=== PATIENT | female | born 1975 | race Caucasian/White ===

== ENCOUNTER 2019-06-08 07:59 | Outpatient (CLI) | payer OTHER, SELFPAY ==
--- NOTE | ~2019-06-08 | MM_ITS ---
EXAMINATION: MM [facility] HISTORY: Screening mammogram TECHNIQUE: Craniocaudal and mediolateral oblique 3-D tomosynthesis images were obtained and synthetic 2-D images were generated. CAD analysis was submitted and interpreted. COMPARISON: 07/10/2017, 04/03/2016, 12/10/2014 BREAST PARENCHYMAL COMPOSITION: There are scattered areas of fibroglandular density. FINDINGS: There is no evidence of suspicious mass, calcification, or architectural distortion to sugg est malignancy in either breast. There has been no suspicious interval change. IMPRESSION: 1. No mammographic evidence of malignancy. 2. Recommend routine screening mammography in one year. BI-RADS Category 1: Negative Reviewed, dictated and finalized at location A. RVISOR BOILER REPAIR
== END 2019-06-08 08:00 | disposition home or self-care (01) ==
LOC: ANHIMG 08:01
PROVIDERS: PCP Family Medicine; Visit Provider Family Medicine
DX: Z12.31 Encounter for screening mammogram for malignant neoplasm of breast (principal)
CPT/HCPCS: 77063; 77067

== ENCOUNTER 2021-02-27 16:29 | Outpatient (CLI) | payer OTHER, SELFPAY ==
--- NOTE | ~2021-02-27 | MM_ITS ---
EXAMINATION: MM screening [facility] w [facility] HISTORY: Screening mammogram TECHNIQUE: Craniocaudal and mediolateral oblique 3-D tomosynthesis images were obtained and synthetic 2-D images were generated. CAD analysis was submitted and interpreted. COMPARISON: 06/2019 bilateral digital screening mammogram 07/10/2017 bilateral diagnostic digital mammogram 04/03/2016, BREAST PARENCHYMAL COMPOSITION: There are scattered areas of fibroglandular density. FINDINGS: Stable mild fibroglandular asymmetry. There is no evidence of suspicious mass, calcificatio n, or architectural distortion to suggest malignancy in either breast. There has been no suspicious i nterval change. IMPRESSION: 1. No mammographic evidence of malignancy. 2. Recommend routine screening mammography in one year. BI-RADS Category 2: Benign finding(s). Reviewed, dictated and finalized at location A.
== END 2021-02-27 16:30 | disposition home or self-care (01) ==
LOC: ANHIMG 16:32
PROVIDERS: PCP Family Medicine; Visit Provider Family Medicine
DX: Z12.31 Encounter for screening mammogram for malignant neoplasm of breast (principal)
CPT/HCPCS: 77063; 77067

== ENCOUNTER 2022-05-28 13:49 | Outpatient (CLI) | payer OTHER, SELFPAY ==
--- NOTE | ~2022-05-28 | MMUS_ITS ---
EXAMINATION: MM diagnostic [facility] w [facility], US breast RT complete HISTORY: Inferior and lateral right breast pain, right nipple itching. TECHNIQUE: Bilateral full field ML, MLO and CC and right spot ML, MLO and CC 3-D tomosynthesis images were performed and synthetic 2-D images were generated. CAD analysis was submitted and interpreted. High resolution complete bilateral breast ultrasound or quadrants and subareolar area of each breast was performed. COMPARISON: 02/27/2021, 06/2019 bilateral screening mammogram examinations BREAST PARENCHYMAL COMPOSITION: There are scattered areas of fibroglandular density. FINDINGS: MAMMOGRAPHIC FINDINGS: No suspicious mass or architectural distortion, malignant calcification, skin thickening or retractio n or significant new or developing density is detected. ULTRASOUND: No suspicious mass or shadowing or other significant sonographic abnormality of either breast is dete cted. IMPRESSION: 1. No mammographic evidence of malignancy 2. Routine annual mammographic screening is recommended. BI-RADS Category 1: Negative Reviewed, dictated and finalized at location A. EMIC INTERVENTIONIST IMPRESSION: 1. No mammographic evidence of malignancy 2. Routine annual mammographic screening is recommended. BI-RADS Category 1: Negative
== END 2022-05-28 13:50 | disposition home or self-care (01) ==
PROVIDERS: PCP Family Medicine; Visit Provider Physician Assistant
DX: N64.4 Mastodynia (principal)
CPT/HCPCS: 76641; 77062; 77066; G0279

== ENCOUNTER 2022-06-26 18:20 | Emergency (ER) | payer OTHER, SELFPAY ==
--- NOTE | ~2022-06-26 | XR_ITS ---
EXAM: XR lumbar spine 2-3V DATE: 06/26/2022 19:43 HISTORY: LOWER BACK PAIN NO KNOWN INJURY . COMPARISON: None available. FINDINGS: 5 nonrib-bearing lumbar-type vertebral bodies. Pedicles intact. Normal vertebral body alig nment. Vertebral body heights preserved. Multilevel degenerative disc disease, moderate at L5-S1. Mil d lower lumbar facet arthropathy. No fracture or dislocation. IMPRESSION: No acute fracture or traumatic malalignment detected in the lumbar spine. Reviewed, dictated and finalized at location K. CIATE PROFESSOR OF GEOGRAPHY
[2022-06-26 18:49] VITALS: BP 126/76; PULSE 71; RESP 14; TEMP 36.9; O2SAT 100
--- NOTE | 2022-06-26 19:21 | ED.BACK ---
HPI - Back Pain/Injury General Chief Complaint: Back Pain/Injury Stated Complaint: back pain Time Seen by Provider: 06/26/22 19:21 Source: patient Mode of arrival: ambulatory Limitations: no limitations History of Present Illness HPI Narrative: 47-year-old female presented for complaints of pain across the lower back and left hip for 3 days. Denies known injury, but states 2 days prior she walked around [facility] and danced. Endorses left lateral calf pain /tightness. Pain worse to lower back when standing and with general movements. Described as constant and sharp. Denies radiating pain to leg/foot, numbness, tingling, weakness of the lower extremities, loss of bowel or bladder control, or saddle paresthesia. She has taken ibuprofen, muscle relaxers, and got a massage today. She has also used tennis ball and performed stretches. She endorses a history of mid back pain for which she has seen a chiropractor, but states this is different pain and more severe than she has had the past. 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 RESPIRATORY: Denies cough or dyspnea. GASTROINTESTINAL: Denies abdominal pain, nausea, vomiting, or diarrhea. SKIN: Denies rash, itching, or wounds. MUSCULOSKELETAL: reports back pain NEUROLOGIC: Denies headache, numbness, tingling, or weakness. All systems reviewed & are unremarkable except as noted in HPI and below PMFSH Past Medical History Medical History Hypothyroid Social History Social History Alcohol intake: current Comments At time of signature, I have reviewed and agree with nursing past medical, surgical, social and family history unless otherwise noted. Please see nursing chart for further information. There is no relevant family history pertinent to the presenting complaint Exam Narrative: GENERAL: appears in pain; in no acute distress. CHEST: Speaks in full sentences. No respiratory distress. HEART: Regular rate and rhythm. Normal and equal peripheral pulses. MUSC: Lower back is nontender with palpation, no paraspinal tenderness, No Vertebral point tenderness. Mild SI joint pain with palpation. BLEs with normal strength and sensation, normal range of motion edema or ecchymosis, No open wounds or rashes; alignment normal, pulse palpable and equal bilaterally, skin warm, dry, pink. Capillary refill less than 3 seconds. Gait steady. SKIN: Warm, dry, no rash. NEURO: Alert and oriented x3. Course Course Emergency Course: Patient is aware of diagnosis, understands and agrees to treatment plan. Anticipatory guidance given. Patient agrees to follow-up as directed and is aware of reasons to seek care at the emergency department. Portions of this record may have been created with voice recognition software Level of Care: Express Care Visit Vital Signs Vital signs: Vital Signs Temperature 98.4 F 06/26/22 18:49 Pulse Rate 71 06/26/22 18:49 Respiratory Rate 14 06/26/22 18:49 Blood Pressure 126/76 06/26/22 18:49 Pulse Oximetry 100 06/26/22 18:49 Oxygen Delivery Room Air 06/26/22 18:49 Temperature 98.4 F 06/26/22 18:49 Pulse Rate 71 06/26/22 18:49 Respiratory Rate 14 06/26/22 18:49 Blood Pressure 126/76 06/26/22 18:49 Pulse Oximetry 100 06/26/22 18:49 Oxygen Delivery Room Air 06/26/22 18:49 Reviewed MDM - B
== END 2022-06-26 20:05 | disposition home or self-care (01) ==
PROVIDERS: Emergency Provider Nurse Practitioner Family; PCP Family Medicine
DX: S39.012A Strain of muscle, fascia and tendon of lower back, initial encounter (principal); T14.90XA Injury, unspecified, initial encounter; E03.9 Hypothyroidism, unspecified
CPT/HCPCS: 72100; 99213; G0463

== ENCOUNTER → 2023-03-20 11:07 | Outpatient (CLI) | payer OTHER, SELFPAY ==
--- NOTE | ~2023-03-20 | XR_ITS ---
XR chest 2V DATE: 03/20/2023 11:27 INDICATION: Preprocedure examination TECHNIQUE: 2 views COMPARISON: None FINDINGS: Normal heart size. No hilar or mediastinal enlargement. No pulmonary infiltrate or consolid ation, pleural effusion or pulmonary vascular congestion or pneumothorax. Old healed right clavicular shaft fracture deformity. Mild degenerative change of the thoracic spine. IMPRESSION: No active cardiopulmonary disease Reviewed, dictated and finalized at location L. RELATIONS ADVISER
== END ==
PROVIDERS: PCP Family Medicine; Visit Provider Family Medicine
DX: Z01.818 Encounter for other preprocedural examination (principal)
CPT/HCPCS: 71046

== ENCOUNTER 2023-08-05 15:59 | Outpatient (CLI) | payer OTHER, SELFPAY ==
--- NOTE | ~2023-08-05 | MM_ITS ---
EXAMINATION: MM screening [facility] w [facility] HISTORY: Screening TECHNIQUE: Craniocaudal and mediolateral oblique 3-D tomosynthesis images were obtained and synthetic 2-D images were generated. CAD analysis was submitted and interpreted. COMPARISON: 02/27/2021 BREAST PARENCHYMAL COMPOSITION: Not dense: There are scattered areas of fibroglandular density. FINDINGS: There is no evidence of suspicious mass, calcification, or architectural distortion to sugg est malignancy in either breast. There has been no suspicious interval change. IMPRESSION: 1. No mammographic evidence of malignancy. 2. Recommend routine screening mammography in one year. BI-RADS Category 1: Negative Reviewed, dictated and finalized at location A.
== END 2023-08-05 16:00 | disposition home or self-care (01) ==
PROVIDERS: PCP Family Medicine; Visit Provider Family Medicine
DX: Z12.31 Encounter for screening mammogram for malignant neoplasm of breast (principal)
CPT/HCPCS: 77063; 77067

== ENCOUNTER 2024-04-17 09:49 | Outpatient (CLI) | payer OTHER, BC, SELFPAY ==
--- NOTE | ~2024-04-17 | MR_ITS ---
MRI of the lumbar spine Clinical History: Left sciatica Technique: Axial T2-weighted images, and sagittal T1-weighted, T2-weighted, and T2 fat-sat images wer e acquired. Findings: There is no fracture or subluxation of the lumbar spine. Vertebral bodies maintain normal h eight and alignment. No significant bone marrow signal abnormality seen. At L1-L2, there is no disc bulge or herniation. There is moderate facet hypertrophy. No spinal canal stenosis or neural foraminal narrowing. At L2-L3, there is minimal degenerative disc narrowing. No significant disc bulge or herniation. Ther e is mild to moderate facet arthropathy. No central canal stenosis or neural foraminal narrowing. At L3-L4, there is mild degenerative change. There is minimal disc bulge and mild facet arthropathy. No central canal stenosis or neural foraminal narrowing. At L4-L5, there is minimal disc bulge with mild to moderate facet arthropathy. No central canal steno sis or definite neural foraminal narrowing. At L5-S1, there is mild degenerative change. There is prominent disc protrusion at the left paracentr al region, which may impinge the descending left-sided S1-S2 level nerve root. There is moderate face t arthropathy. No marcial central canal stenosis. There is left lateral recess stenosis, though the kiran ral foramina themselves at this level are intact. Paravertebral soft tissues are unremarkable. Impression: Left paracentral disc protrusion at L5-S1, likely impinging the descending left-sided S1-S2 level ner ve root. Reviewed, dictated and finalized at [facility]. CUTTER Impression: Left paracentral disc protrusion at L5-S1, likely impinging the descending left -sided S1-S2 level nerve root.
== END 2024-04-17 09:50 | disposition home or self-care (01) ==
LOC: MICIMG 09:50
DX: M54.32 Sciatica, left side (principal); M51.26 Other intervertebral disc displacement, lumbar region
CPT/HCPCS: 72148

== ENCOUNTER 2024-10-11 15:59 | Outpatient (CLI) | payer OTHER, BC, SELFPAY ==
--- NOTE | ~2024-10-11 | XR_ITS ---
EXAMINATION: XR chest 2V Exam Date/Time: 10/11/2024 16:08 CDT HISTORY: Encounter for other specified special examinations Comparison: 03/20/2023. RESULT: Lines, tubes, and devices: None. Lungs and pleura: No focal consolidation, pleural effusion, or pneumothorax. Low volumes with crowdi ng in the lateral view. Cardiomediastinal silhouette: Stable. Other: No acute osseous or upper abdominal finding. Old right midshaft clavicle fracture healed in d eformity. IMPRESSION: No acute cardiopulmonary process. Reviewed, dictated and finalized at location K.
== END 2024-10-11 16:00 | disposition home or self-care (01) ==
PROVIDERS: PCP Nurse Practitioner Family; Visit Provider Nurse Practitioner Family
DX: Z01.89 Encounter for other specified special examinations (principal)
CPT/HCPCS: 71046

== ENCOUNTER 2024-10-16 10:55 | Outpatient (CLI) | payer OTHER, BC, SELFPAY ==
--- NOTE | ~2024-10-16 | MM_ITS ---
EXAMINATION: MM screening [facility] BI w [facility]ia HISTORY: Screening TECHNIQUE: Craniocaudal and mediolateral oblique 3-D tomosynthesis images were obtained and synthetic 2-D images were generated. CAD analysis was submitted and interpreted. COMPARISON: Comparison to multiple prior studies sequentially, with oldest reviewed study dated 03/07. BREAST PARENCHYMAL COMPOSITION: Not dense: There are scattered areas of fibroglandular density. FINDINGS: There is no evidence of suspicious mass, calcification, or architectural distortion to sugg est malignancy in either breast. There has been no suspicious interval change. IMPRESSION: 1. No mammographic evidence of malignancy. 2. Recommend routine screening mammography in one year. BI-RADS Category 1: Negative Reviewed, dictated and finalized at location A.
--- OUTSIDE RECORDS SUMMARY | 2024-10-16 11:00 | XMS_ITS | Patient Health Record ---
Author Organization [facility] Address [address] [place] [address] Care Team Providers Care Head Baker Name Role Phone Elenita Sargent Primary Care Provider ALLERGIES No Known Allergies RESULTS Component Value Reference Range Notes MRI : Lumbar without contras t (Not yet reviewed by provider) Interpretation: Performing Lab: Notes/Report: TSH+T3+Free T4+T3 Free Reviewed date:12/30/2023 09:38:24 AM Interpretation:Normal Performing Lab:[facility], [address] [place] [id number], Phone - [phone], Director - [facility] Notes/Report: TSH-ICMA 1.7 Reference Range: Non- Adult 0.450-4.500 First Trimester 0.100-4.000 Second Trimester 0.200-4.000 Third Trimester 0.300-4.500 Triiodothyronine (T-3), Serum 111 Reference Range: Adults: 55 - 170 Free T-3 3.3 Reference Range: >=20y: 2.0 - 4.4 Free T4 by Dialysis/Admissions Coordinator 0.80 This test was developed and its performance characteristics determined by [facility]. It has not been cleared or approved by the Food and Drug Administration. Reference Range: Pubertal Children and Adults: 0.8 - 1.7 Comp. Metabolic Panel (14) ( CMP)([id number]) Reviewed date:11/20/2023 08:43:03 AM Interpretation:Normal Performing Lab:[facility], [address] [place] [address], [place], [place] [id number], Phone - [phone], Director - Kelley Notes/Report: Glucose 77 70-99 mg/dL BUN 16 6-24 mg/dL Creatinine 0.64 0.57-1.00 mg/dL eGFR 108 >59 mL/min/1.73 BUN/Creatinine Ratio 25 9-23 Sodium 139 134-144 mmol/L Potassium 4.5 3.5-5.2 mmol/L Chloride 100 96-106 mmol/L Carbon Dioxide, Total 26 20-29 mmol/L Calcium 9.2 8.7-10.2 mg/dL Protein, Total 6.5 6.0-8.5 g/dL Albumin 4.1 3.9-4.9 g/dL Globulin, Total 2.4 1.5-4.5 g/dL Bilirubin, Total 0.3 0.0-1.2 mg/dL Alkaline Phosphatase 48 44-121 IU/L AST (SGOT) 18 0-40 IU/L ALT (SGPT) 31 0-32 IU/L Hemoglobin A1c (S/O) ([id number] ) Reviewed date:11/20/2023 08:43:03 AM Interpretation:Normal Performing Lab:[facility] [id number], Phone - [phone], [facility] Notes/Report: Hemoglobin A1c 5.4 4.8-5.6 % . Prediabetes: 5.7 - 6.4 Diabetes: >6.4 Glycemic control for adults with diabetes: <7.0 TSH ([id number]) Reviewed date:11/20/2023 08:43:03 AM Interpretation:Abnormal Performing Lab:[address] [id number], Phone - [phone], Director - [facility] Notes/Report: TSH 6.460 0.450-4.500 uIU/mL CBC With Differential/Platel et ([id number]) Reviewed date:11/20/2023 08:43:03 AM Interpretation:Normal Performing Lab:[address] [id number], Phone - [phone], [facility] - [facility] Notes/Report: WBC 7.4 3.4-10.8 x10E3/uL RBC 4.17 3.77-5.28 x10E6/uL Hemoglobin 12.6 11.1-15.9 g/dL Hematocrit 38.7 34.0-46.6 % MCV 93 79-97 fL MCH 30.2 26.6-33.0 pg MCHC 32.6 31.5-35.7 g/dL RDW 12.1 11.7-15.4 % Platelets 266 150-450 x10E3/uL Neutrophils 45 Not Estab. % Lymphs 45 Not Estab. % Monocytes 7 Not Estab. % Eos 2 Not Estab. % Basos 0 Not Estab. % Immature Cells Neutrophils (Absolute) 3.4 1.4-7.0 x10E3/uL Lymphs (Absolute) 3.3 0.7-3.1 x10E3/uL Monocytes(Absolute) 0.5 0.1-0.9 x10E3/uL Eos (Absolute) 0.1 0.0-0.4 x10E3/uL Baso (Absolute) 0.0 0.0-0.2 x10E3/uL Immature Granulocytes 1 Not Estab. % Immature Grans (Abs) 0.0 0.0-0.1 x10E3/uL NRBC Hematology Comments: Lipid Panel w/ Chol/HDL Rati o ([id number]) Reviewed date:11/20/2023 08:43:03 AM Interpretation:Abnormal Performing Lab:[facility], [address] [facility], [place], [place] [id number], Phone - [phone], Director - Kelley Notes/Report: Cholesterol, Total 209 100-199 mg/dL Triglycerides 221 0-149 mg/dL HDL Cholesterol 53 >39 mg/dL VLDL Cholesterol Alexandru 38 5-40 mg/dL LDL Chol Calc ([facility]) 118 0-99 mg/dL LDL Calc Comment: T. Chol/HDL Ratio 3.9 0.0-4.4 ratio T. Chol/HDL Ratio Men Women 1/2 Avg.Risk 3.4 3.3 Avg.Risk 5.0 4.4 2X Avg.Risk 9.6 7.1 3X Avg.Risk 23.4 11.0 Colonoscopy Reviewed date:03/03/2024 03:41:26 PM Interpretation:See attachment for report Performing Lab: Notes/Report: See attachment for report REASON FOR REFERRAL Reason L sciatica Diagnosis 1 Sciatica, left side (M54.32) Referral Organization [facility] Referring Provider First Name Elenita Referring Provider Last Name Arie Referring Provider [facility] icine Referred Provider [facility] Referred Provider Specialty Physical [place] white Clinical Notes Elenita Sargent 12/2023 09:37:29 AM >Pt requests [facility] in [facility]. Referral Priority Routine Referral Appointment Date 11/14/2023 Reason left sciatica, francisco javier nued Diagnosis 1 Sciatica, left side (M54.32) Referral Organization [facility] Referring Provider First Name Elenita Referring Provider Last Name Arie Referring Provider [facility] sergne Referred Provider [facility] Referred Provider Specialty Physical [place] white Clinical Notes Jayson, Henny 2023 01:43:34 PM >See notes of prior. No further records. Patient to verify insurance coverage prior to accepting referral., Gilbert Henny 12/24/2023 01:43:46 PM >Canceling per no further reports received. Referral Priority Routine Reason Given chronic consti pation complaint recommend pt see GI for colonoscopy. She is willing to go to [facility] or wherever can see her the soonest. Diagnosis 1 Screen for colon can cer (Z12.11) Referral Organization [facility] Referring Provider First Name Elenita Referring Provider Last Name Arie Referring Provider [facility] cameron Referred Provider Specialty Gastroentero logy Clinical Notes Elenita Sargent 02/03 04:05:15 PM >As of 03/02/24 pt has not scheduled appt with GI. Will close as > 30 days inactivity and under consideration of EMR migration. Referral Priority Routine MEDICATIONS Medication SIG (Take, Route, Frequency, Duration) Notes Start Date End Date Status Magdalena 0.075 MG/24HR 1 patch to skin Transdermal Two times a Week for 30 days Active COMB WINDER Thyroid 30 MG 1 tablet on an empty stomach Orally Once a day for 90 days [facility] 08/19/2023 Active buPROPion HCl ER (XL) 150 MG 1 tablet in the morning Orally Once a day for 90 days 01/20/2024 Active SOCIAL HISTORY Tobacco Use: Social History Observation Description Date Details (start date - stop date) Former Smoker 05/05/1988 - 05/05/2021 Sex Assigned At : Social History Observation Description Sex Assigned At Unknown Tobacco Use/Smoking Question Answer Notes Are you a former user When did you start using? 05/05/1988 When did you stop using? 05/05/2021 Additional Findings: Tobacco Non-User Vape user Alcohol Questionnaire Question Answer Notes Did you have a drink contain ing alcohol in the past year? Yes How often did you have a dri nk containing alcohol in the past year? 2 to 4 times a month (2 points) How many drinks did you have on a typical day when you were drinking in the past year? 5 or 6 drinks (2 points) How often did you have 6 or more drinks on one occasion in the past year? Monthly (2 points) Points 6 Interpretation Positive PROBLEMS Problem Type ICD Code Onset Dates Problem Status W/U Status Risk SNOMED Code Notes Problem Acquired absence of cervix (Z90.710) Active confirmed 433944751559497 Problem Hypothyroidism, unspecified type (E03.9) Active confirmed 62277049 Problem Obesity (E66.9) Active confirmed VITAL SIGNS Heart Rate 66 /min 01/20/2024 Temperature 97.8 degrees Fahrenheit 01/20/2024 Respiratory Rate 12 /min 01/20/2024 Oximetry 98 % 01/20/2024 Blood pressure diastolic 73 mm Hg 01/20/2024 Weight-kg 65.86 kg 01/20/2024 Height 60.25 in 01/20/2024 Blood pressure systolic 115 mm Hg 01/20/2024 Weight 145.2 lbs 01/20/2024 BMI 28.12 01/20/2024 PROCEDURES Procedure Date Ordered Date Performed Result Body Sit e COLONOSCOPY 01/19/2024 01/16/2024 Negative Encounters Encounter Location Date Provider Diagnosis [address] [address] 11/18/2023 Elenita Sargent Encounter for genera l adult medical examination with abnormal findings Z00.01 ; Hypothyroidism, unspecified type E03.9 ; Obesity E66.9 ; Vapes nicotine containing substance Z72.0 ; Acquired absence of cervix Z90.710 ; Screening for cardiovascular condition Z13.6 ; Diabetes mellitus screening Z13.1 ; Screen for colon cancer Z12.11 and Breast screening Z12.[address] [address] 12/22/2023 Elenita Darricka [facility] [address] [place] [address] 04/20/2024 Elenita Voyda [facility] [address] [place] [address] 01/20/2024 Elenita Josefyda Menopausal symptoms N95.1 ; Sciatica, left side M54.32 and Depressed mood R45.89 [facility] [address] [place] [address] 12/22/2023 Elenita Josefyda Hypothyroidism, unspecified type E03.9 and Menopausal symptoms N95.1 [facility] [address] [place] [address] 11/10/2023 Elenita Josefyda Sciatica, left side M54.32 and Constipation, chronic K59.09 [facility] [address] [place] [address] 01/19/2024 Elenita Darricka [facility] [address] [place] [address] 11/20/2023 Elenita Voyda Hypothyroidism, unspecified type E03.9 ; Elevated cholesterol with elevated triglycerides E78.2 and Vapes nicotine containing substance Z72.0 [facility] [address] [place] [address] 12/30/2023 Elenita Voyda Hypothyroidism, unspecified type E03.9 [facility] [address] [place] [address] 10/30/2023 Elenita Darricka [facility] [address] [place] [address] 01/19/2024 Elenita Darricka [facility] [address] [place] [address] 12/04/2023 Elenita Voyda Sciatica, left side M54.32 [facility] [address] [place] [address] 03/02/2024 Elenita Josefbriseydaa [facility] [address] [place] [address] 03/02/2024 Elenitajohnie Sargent [facility] [address] [place] [address] 02/27/2024 [facility] [address] [place] [address] 02/09/2024 Elenita Sargent [facility] [address] [place] [address] 12/24/2023 Elenita Sargent [facility] [address] [place] [address] 03/16/2024 Elenita Sargent [facility] [address] [place] [address] 03/08/2024 Elenita Sargent ASSESSMENTS Encounter Date Diagnosis Assessment Notes Treatment Notes Treatment Clinical Notes Section Notes 11/10/2023 Sciatica, left side (ICD-10 - M54.32) Pt doing all conservative tx including Tylenol, stretching exercises, massage, chiropractic, inversion table w/o relief - cannot tolerate NSAIDs d/t gastric sleeve surgery. She would like MRI but primary and secondary insurances have denied for unknown reasons. Discussed tx options and recommend pt continue home conservative tx, add IM steroid injection today, start MDP tomorrow, and refer to PT. Advised she likely needs 4-8 wks PT completed before insurance will cover MRI. Pt verbalized understanding and agreement with POC. Orders placed. Pt will f/u 2 months or PRN. 11/10/2023 Constipation, chronic (ICD-10 - K59.09) Many OTC products used including laxative tablets, powders, and teas as well as Rx'd LInzess. Pt is taking OTC magnesium but it is not helping. Encouraged good hydration, daily exercise, diet rich in fiber. Advised to ensure her OTC supplement is mag citrate, if not buy some and try x1-2 weeks. Consider referral to GI for c-scope. Pt voiced understanding and agreement with POC as discussed. All questions and concerns were addressed to pt satisfaction. If no improvement 1-2 weeks pt to call with update, consider Linzess Rx. 11/18/2023 Encounter for general adult medical examination with abnormal findings (ICD-10 - Z00.01) Px exam unremarkable. Discussed basic screening labs, pt agreeable, ordered. Reviewed preventative measures - discussed breast cancer screening, pelvic/pap, PSA, LDCT, colorectal cancer screening. Vaccines - UTD tdap, flu shot Encouraged good nutrition and daily exercise. Will call with lab results once rec'd. 11/18/2023 Hypothyroidism, unspecified type (ICD-10 - E03.9) She thinks most recent labs with PCP were 03/2023. Pt is unsure what results were. She is agreeable to labs today as ordered. 11/20/2023 Elevated cholesterol with elevated triglycerides (ICD-10 - E78.2) 11/18/23 labs indicate mildly elevated TC, TG, and LDL while HDL is great at 53. Encouraged pt to reduce sat/trans fats, get daily exercise, hydrate well. Discussed ASCVD risk including: current 10-year 11/20/2023 Hypothyroidism, unspecified type (ICD-10 - E03.9) 11/18/23 lab results indicate TSH elevated at 6. Pt reports prior TSH results she has available on her phone via [employer] edvin show TSH 05/2022 at 3.5, and before that 3.1. She does c/o ssx including fatigue, constipation, and some weight gain. She is agreeable to increase COMB WINDER Thyroid dose to 30mg from 15mg, and retest x1 month. Pt declines RF at this time. 1 month F/U appt scheduled. 12/04/2023 Sciatica, left side (ICD-10 - M54.32) Pt needs additional PT sessions for insurance to cover. She reports PT seems to be significantly improving ssx. Referral order placed as I'm unable to update prior order. Pt will call for any further concern. 12/22/2023 Menopausal symptoms (ICD-10 - N95.1) SSx increase in hot flashes, vaginal dryness, and absent libido. Will increase Magdalena from 0.05 mg to 0.075 mg patch. Pt will f/u 1 month to report efficacy. 12/22/2023 Hypothyroidism, unspecified type (ICD-10 - E03.9) 11/18/23 lab results indicate TSH elevated at 6. Pt reports prior TSH results she has available on her phone via [employer] show TSH 05/2022 at 3.5, and before that 3.1. She does c/o ssx including fatigue, constipation, and some weight gain. She is agreeable to increase COMB WINDER Thyroid dose to 30mg from 15mg, and retest x1 month. RF ordered to [facility], labs drawn today. 12/30/2023 Hypothyroidism, unspecified type (ICD-10 - E03.9) Prior results on 11/18/23 indicate TSH elevated at 6, which warranted COMB WINDER Thyroid dosage adjustment from 15 to 30mg. 12/22/23 lab results indicate TSH now is WNL at 1.7. She verbalized some improvement in ssx previously reported - fatigue, constipation, and weight. Pt encouraged to continue CPM. RF #90 ordered 12/21, none needed today. F/U 3 months. 01/20/2024 Sciatica, left side (ICD-10 - M54.32) Pt has completed or is continuing to perform conservative tx for chronic sciatica including Tylenol, exercises, massage therapy, massage gun, topicals like Icy Hot, chiropractic adjustment, inversion table w/o relief - cannot tolerate NSAIDs d/t gastric sleeve surgery. Pt had XR imaging done over 1 year ago with [facility]. She reports she has participated in 10 PT sessions but is concerned to continue as ssx seem to be worse now, although initially reportedly improved, for fear of increasing issue severity. Advised her to continue conservative tx, will order lumbar MRI w/o contrast. Will call with results as rec'd. 01/20/2024 Menopausal symptoms (ICD-10 - N95.1) Pt reports much improvement overall w/Magdalena dosage increase 1 month ago. She wishes to CPM. RF ordered to her preferred pharmacy. F/U 3 months. 11/18/2023 Obesity (ICD-10 - E66.9) Encouraged daily exercise, improved nutrition, adequate hydration, and weight loss. She has had gastric surgery and lost undisclosed amount of weight. 11/20/2023 Vapes nicotine containing substance (ICD-10 - Z72.0) 01/20/2024 Depressed mood (ICD-10 - R45.89) Pt reportedly doing really well since starting buproprion 150mg XL. She requests RF, denies concerns, SI, HI, and panic. RF ordered, dispensed #90. F/U 3 months. 11/18/2023 Vapes nicotine containing substance (ICD-10 - Z72.0) Pt interested in cessation. She has Rx from PCP for bupropion - verified w/pharmacy it is 150mg XL, Rx'd/filled 03/2023 #30. Pt has med at home, will restart it. Encouraged her to consider adding nicotine patch with it for increased aid. She turns 49 in April. Discussed LDCT recommendations for lung cancer screening at 49 per guidelines. She will call for help if needed. 11/18/2023 Acquired absence of cervix (ICD-10 - Z90.710) No need for pap. 11/18/2023 Screening for cardiovascular condition (ICD-10 - Z13.6) 11/18/2023 Diabetes mellitus screening (ICD-10 - Z13.1) 11/18/2023 Screen for colon cancer (ICD-10 - Z12.11) Given chronic constipation complaint recommend pt see GI for colonoscopy. She is willing to go to [facility] or wherever can see her the soonest. 11/18/2023 Breast screening (ICD-10 - Z12.39) Pt reportedly had mammo this year per Dr. Bella Villasenor. Pt reports results as WNL, repeat 1 year. Frank notes mammo completed 05/28/22, WNL, 2023 result not found. Will seek records for her chart. 11/18/2023 Other PLAN OF TREATMENT Next Appt Details Provider Name:Elenita Sargent , 11/16/2024 08:30:00 AM, [address] [place], [address], Insurance Providers Payer Name Payer Address Payer Phone Subscriber Number Group Number Insured Name Patient Relationship to Insured Coverage Start Date Coverage End Date [id number] [employer] [address] [address] [place] [address] [id number] Harvey Flores Spouse - patient is the spouse of the insured MEDICATIONS ADMINISTERED Medication Instructions Date of Administration Dosage Notes Kenalog-40 11/10/2023 40 mg MEDICAL (GENERAL) HISTORY Medical History History ICD Code Hypothyroidism E03.9 Obesity E66.9 Surgical History Surgery Date(Month/Year) mini gastric sleeve (done in [place]) 2021 fat transferred to glutes (done in [place]) 1 06/2022 body tight (done in [place] 2020 liposuction (done in [place] 2019 tummy tuck (done in [place]) 2007 tubal ligation 1998 partial hysterectomy, both ovaries remai celi 2012
--- OUTSIDE RECORDS SUMMARY | 2024-10-16 11:00 | XMS_ITS | Clinical Summary ---
Author Organization [facility] Address [address] [place] [address] Care Team Providers Care Airport Ramp Attendant Name Role Phone Unavailable Primary Care Provider Unavailabl e Source Comments [facility],non-owned Affiliates and Associated Physician Practices is amultiple site organization consisting of ambulatory clinics and hospital sitesin [place], [place], [place] and [place]. This disclosure is being madepursuant to the Care Everywhere program and may not contain all information available regarding this patient. Last updated 18.[facility] Allergies No known active allergies Medications * Be aware that medications may not be up to date on this document. Alwaysverify current medications with the patient. estradiol (Vivelle-Dot) 0.075 MG/24HR patch APPLY 1 PATCH TOPICALLY TO THE SKIN 2 TIMES A WEEK Active [employer] Thyroid 15 MG tablet Take 1 (one) tablet by mouth every morning 4 Active ibuprofen (Motrin) 200 MG tablet Take by mouth every 6 hours as needed for Pain Active Active Problems No known active problems Social History Tobacco Use Types Packs/Day Years Used Date Smoking Tobacco: Never Assessed Comments Unknown Sex and Gender Information Value Date Recorded Sex Assigned at Not on file Legal Sex Female 9:29 AM CDT Gender Identity Not on file Sexual Orientation Not on file Last Filed Vital Signs Vital Sign Reading Time Taken Comments Blood Pressure - - Pulse - - Temperature - - Respiratory Rate - - Oxygen Saturation - - Inhaled Oxygen Concentration - - Weight 66.2 kg (146 lb) 06/28/2024 1:38 PM [employer] Height 152.4 cm (5') 06/28/2024 1:38 PM [employer]EM[employer] Body Mass Index 28.51 06/28/2024 1:38 PM [employer]ING [employer]EMAN Plan of Treatment Health Maintenance Due Date Last Done Comments ALFREDO (AGES 45-75) - COL ON CA SCREENING 1974 COLON MONITORING 1974 COLONOSCOPY - COLON CA SCREENING 1974 CT COLONOGRAPHY - COLON CA SCREENING 1974 Colorectal Cancer Screening 1974 FIT - COLON CA SCREENING 1974 FLEX SIG - COLON CA SCREENING 1974 LIPID TESTING 1974 MAMMOGRAM 1974 PAP SMEAR 1974 HIV SCREENING 1989 HEPATITIS C SCREENING 04/17/1992 DTAP/TDAP/TD VACCINES (1 - Tdap) 1993 HEPATITIS B VACCINE (1 of 3 - + 3-dose series) 1993 COVID-19 VACCINE (1 - 2023-2 5 season) 2024 PNEUMOCOCCAL VACCINE 50+ (1 of 1 - PCV) 2024 ZOSTER VACCINE (1 of 2) 2024 DEPRESSION SCREENING 05/05/2024 SCREENING FOR DIABETES 06/28/2024 INFLUENZA VACCINE Completed 04/20/2024 HIB VACCINE Aged Out No longer eligi ble based on patient's age to complete this topic HPV VACCINE Aged Out No longer eligi ble based on patient's age to complete this topic MENINGOCOCCAL (Group B) VACC INE SHARED DECISION-MAKING Aged Out No longer eligibl e based on patient's age to complete this topic MENINGOCOCCAL GROUPS A/C/Y/W VACCINE Aged Out No longer eligible b ased on patient's age to complete this topic Insurance [facility]
--- OUTSIDE RECORDS SUMMARY | 2024-10-16 11:00 | XMS_ITS | Data Portability ---
[facility] [place] [facility] [address] [place] [address] Care Team Providers Care Outplacement Consultant Name Role Phone ELENITA SARGENT Primary Care Provider [facility] Physical Therapist [phone] Assessment No assessment recorded. Plan of Treatment Reminders Order Date Submit Date Provider Last Modified By Organization Details Last Modified Time Details Appointments InPerson; PE Routine- 60 2024 08:30A M Elenita Sargent HOT MIX OPERATOR Not available Not available Not available Lab rapid strep group A, throat 2024 025 [email or web address] [facility], [address] [place], [address], 10/05/2024 17:13:42 CBC w/ auto diff 2024 025 [facility] ([facility]), [address] [place] [address], [id number], 09/06/2024 11:36:57 CMP, serum or plasma 2024 025 [facility] ([facility]), [address] [place] [address], [id number], 09/06/2024 11:37:03 thyroid panel, serum 2024 025 [facility] ([facility]), [address] [place] [address], [id number], 09/06/2024 11:37:14 Referral None recorded. Procedures None recorded. Surgeries None recorded. Imaging electroca rdiogram 2024 025 [facility], [address] [place], [address], 09/16/2024 17:12:55 Medication Orders None recorded. Patient TargetsNo targets recorded. Patient Instructions Encounter Date Encounter Id Patient Instructions Last Modified By Organization Details Last Modified Time 08/16/2024 [id number] hypothyroidism: care instructions Not available 08/16/2024 12:21:36 10/05/2024 [id number] sore throat: car e instructions Not available 10/05/2024 17:03:23 Reason for Referral None Reported. Results Created Date Observation Date Name Description Value Unit Range Abnormal Flag Note LastModifiedBy Organization Detail LastModifiedTime 08/04/1908/05/2024 T4+TS H+T3+ T4F+T 3FREE +TPO TSH 4.170 uIU/m L 0.450- 4.500 normal Not Available [facility] ([facility]) [address] [place], [address], 08/05/2024 11:18:13 08/04/19 25 08/05/2024 T4+TS H+T3+ T4F+T 3FREE +TPO thyroxine (T4) 5.9 ug/dL 4.5-12 .0 normal Not Available [facility] ([facility]) [address] [place], [address], 08/05/2024 11:18:13 08/04/19 25 08/05/2024 T4+TS H+T3+ T4F+T 3FREE +TPO triiodothyro nine (T3) 110 NG/dL 71-180 normal Not Available [facility] ([facility]) [address] [place], [address], 08/05/2024 11:18:13 08/04/19 25 08/05/2024 T4+TS H+T3+ T4F+T 3FREE +TPO triiodothyro nine (T3), free 3.1 pg/mL 2.0-4. 4 normal Not Available [facility] ([facility]) [address] [place], [address], 08/05/2024 11:18:13 08/04/19 25 08/05/2024 T4+TS H+T3+ T4F+T 3FREE +TPO T4,free(dire ct) 0.78 NG/dL 0.82-1 .77 below low normal Not Available [facility] ([facility]) [address] [place], [address], 08/05/2024 11:18:13 08/04/19 25 08/05/2024 T4+TS H+T3+ T4F+T 3FREE +TPO thyroid peroxidase (tpo) Ab >600 IU/mL 0-34 above high normal Not Available [facility] ([facility]) [address] [place], [address], 08/05/2024 11:18:13 09/07/19 25 09/07/2024 BMP7+ EGFR glucose 86 mg/dL 70-99 normal Not Available [facility] ([facility]) [address] [place], [address], 09/08/2024 01:10:18 09/07/19 25 09/07/2024 BMP7+ EGFR BUN 14 mg/dL 6-24 normal Not Available [facility] ([facility]) [address] [place], [address], 09/08/2024 01:10:18 09/07/19 25 09/07/2024 BMP7+ EGFR creatinine 0.61 mg/dL 0.57-1 .00 normal Not Available [facility] ([facility]) [address] [place], [address], 09/08/2024 01:10:18 09/07/19 25 09/07/2024 BMP7+ EGFR eGFR 109 mL/mi n/1.7 3 >59 normal Not Available [facility] ([facility]) [address] [place], [address], 09/08/2024 01:10:18 09/07/19 25 09/07/2024 BMP7+ EGFR sodium 140 mmol/ L 134-14 4 normal Not Available [facility] ([facility]) [address] [facility], [place], [address], 09/08/2024 01:10:18 09/07/19 25 09/07/2024 BMP7+ EGFR potassium 3.8 mmol/ L 3.5-5. 2 normal Not Available [facility] ([facility]) [address] [facility], [place], [address], 09/08/2024 01:10:18 09/07/1909/07/2024 BMP7+ EGFR chloride 102 mmol/ L 96-106 normal Not Available [facility] ([facility]) [address] [facility], [place], [address], 09/08/2024 01:10:18 09/07/1909/07/2024 BMP7+ EGFR carbon dioxide, total 22 mmol/ L 20-29 normal Not Available [facility] ([facility]) [address] [place], [address], 09/08/2024 01:10:18 09/07/1909/06/2024 VIRAL HEPAT ITIS HBV, HCV interpretati on Commen t HBV Serol ogy Inter preta tion Chart ----- ----- ----- ----- ----- ----- ----- ----- ----- ----- ----- ----- ----- -- Inter preta tion HBsAg anti- HBs anti- HBc anti- HBc IgM ----- ----- ----- ----- ----- ----- ----- ----- ----- ----- ----- ----- ----- -- Kumar - Marlin te prese nt: + Marlin te absen t: - Test not indic ated: TNI ----- ----- ----- ----- ----- ----- ----- ----- ----- ----- ----- ----- ----- -- Susce ptibl e (neve r infec moody and no evide nce - - - TNI of tera alexander n) ----- ----- ----- ----- ----- ----- ----- ----- ----- ----- ----- ----- ----- -- Immun e due to natmolly al resol abhinav infec tion - + + TNI ----- ----- ----- ----- ----- ----- ----- ----- ----- ----- ----- ----- ----- -- Immun e due to nissai natio n - + - TNI ----- ----- ----- ----- ----- ----- ----- ----- ----- ----- ----- ----- ----- -- Acute Infec tion + - + + ----- ----- ----- ----- ----- ----- ----- ----- ----- ----- ----- ----- ----- -- Chron ic infec tion + - + - ----- ----- ----- ----- ----- ----- ----- ----- ----- ----- ----- ----- ----- -- Inter preta tion uncle ar* - - + +/- ----- ----- ----- ----- ----- ----- ----- ----- ----- ----- ----- ----- ----- -- *Mult iple possi bilit ies: resol abhinav infec tion (most commo n); false - posit heath anti- HBc ([facility]); low- level chron ic infec tion ; resol ving acute infec tion. Not Available [facility] ([facility]) [address] [place], [address], 09/08/2024 01:10:18 09/07/1909/07/2024 VIRAL HEPAT ITIS HBV, HCV HBsAg screen Negati ve negati ve Not Available [facility] ([facility]) [address] [place], [address], 09/08/2024 01:10:18 09/07/1909/07/2024 VIRAL HEPAT ITIS HBV, HCV hep B surface Ab, qual Non Reacti ve Non React heath: Not immun e to HBV infec tion. Equiv ocal: Unabl e to deter mine if anti- HBs is prese nt at level s consi stent with immun ity. React heath: Anti- HBs charleen ntrat ion detec moody at great er than 10 mIU/m L. Indiv idual is consi dered to be immun e to infec tion with HBV. Not Available [facility] ([facility]) [address] [facility], [place], [address], 09/08/2024 01:10:18 09/07/1909/07/2024 VIRAL HEPAT ITIS HBV, HCV hep B core Ab, tot Negati ve negati ve Not Available [facility] ([facility]) [address] [facility], [place], [address], 09/08/2024 01:10:18 09/07/1909/07/2024 VIRAL HEPAT ITIS HBV, HCV HCV Ab Non Reacti ve non reacti ve Not Available [facility] ([facility]) [address] [facility], [place], [address], 09/08/2024 01:10:18 09/07/1909/07/2024 VIRAL HEPAT ITIS HBV, HCV interpretati on: Commen t Not infec moody with HCV unles s early or acute infec tion is suspe cted (whic h may be delay ed in an immun ocomp romis ed indiv idual ), or other evide nce exist s to indic ate HCV infec tion. Not Available [facility] ([facility]) [address] [facility], [place], [address], 09/08/2024 01:10:18 09/07/19 25 09/07/2024 CBC WITH DIFFE RENTI AL/PL ATELE T WBC 5.9 x10e3 /uL 3.4-10 .8 normal Not Available [facility] ([facility]) [address] [place], [address], 09/08/2024 01:10:18 09/07/1909/07/2024 CBC WITH DIFFE RENTI AL/PL ATELE T RBC 4.14 x10e6 /uL 3.77-5 .28 normal Not Available [facility] ([facility]) [address] [place], [address], 09/08/2024 01:10:18 09/07/19 25 09/07/2024 CBC WITH DIFFE RENTI AL/PL ATELE T hemoglobin 12.7 g/dL 11.1-1 5.9 normal Not Available [facility] ([facility]) [address] [place], [address], 09/08/2024 01:10:18 09/07/19 25 09/07/2024 CBC WITH DIFFE RENTI AL/PL ATELE T hematocrit 38.6 % 34.0-4 6.6 normal Not Available [facility] ([facility]) [address] [place], [address], 09/08/2024 01:10:18 09/07/1909/07/2024 CBC WITH DIFFE RENTI AL/PL ATELE T MCV 93 fL 79-97 normal Not Available [facility] ([facility]) [address] [place], [address], 09/08/2024 01:10:18 09/07/1909/07/2024 CBC WITH DIFFE RENTI AL/PL ATELE T MCH 30.7 pg 26.6-3 3.0 normal Not Available [facility] ([facility]) [address] [place], [address], 09/08/2024 01:10:18 09/07/1909/07/2024 CBC WITH DIFFE RENTI AL/PL ATELE T MCHC 32.9 g/dL 31.5-3 5.7 normal Not Available [facility] ([facility]) [address] [place], [address], 09/08/2024 01:10:18 09/07/1909/07/2024 CBC WITH DIFFE RENTI AL/PL ATELE T RDW 12.0 % 11.7-1 5.4 Not Available [facility] ([facility]) [address] [place], [address], 09/08/2024 01:10:18 09/07/1909/07/2024 CBC WITH DIFFE RENTI AL/PL ATELE T platelets 244 x10e3 /uL 150-45 0 normal Not Available [facility] ([facility]) [address] [place], [address], 09/08/2024 01:10:18 09/07/19 25 09/07/2024 CBC WITH DIFFE RENTI AL/PL ATELE T neutrophils 55 % not estab. normal Not Available [facility] ([facility]) [address] [facility], [place], [address], 09/08/2024 01:10:18 09/07/19 25 09/07/2024 CBC WITH DIFFE RENTI AL/PL ATELE T lymphs 34 % not estab. normal Not Available [facility] ([facility]) [address] [place], [address], 09/08/2024 01:10:18 09/07/19 25 09/07/2024 CBC WITH DIFFE RENTI AL/PL ATELE T monocytes 6 % not estab. normal Not Available [facility] ([facility]) [address] [place], [address], 09/08/2024 01:10:18 09/07/1909/07/2024 CBC WITH DIFFE RENTI AL/PL ATELE T eos 4 % not estab. normal Not Available [facility] ([facility]) [address] [facility], [place], [address], 09/08/2024 01:10:18 09/07/1909/07/2024 CBC WITH DIFFE RENTI AL/PL ATELE T basos 1 % not estab. normal Not Available [facility] ([facility]) [address] [facility], [place], [address], 09/08/2024 01:10:18 09/07/19 25 09/07/2024 CBC WITH DIFFE RENTI AL/PL ATELE T immature cells HOT MIX OPERATOR Not Available [facility] ([facility]) [address] [place], [address], 09/08/2024 01:10:18 09/07/19 25 09/07/2024 CBC WITH DIFFE RENTI AL/PL ATELE T neutrophils (absolute) 3.3 x10e3 /uL 1.4-7. 0 normal Not Available [facility] ([facility]) [address] [place], [address], 09/08/2024 01:10:18 09/07/19 25 09/07/2024 CBC WITH DIFFE RENTI AL/PL ATELE T lymphs (absolute) 2.0 x10e3 /uL 0.7-3. 1 normal Not Available [facility] ([facility]) [address] [place], [address], 09/08/2024 01:10:18 09/07/19 25 09/07/2024 CBC WITH DIFFE RENTI AL/PL ATELE T monocytes(ab solute) 0.4 x10e3 /uL 0.1-0. 9 normal Not Available [facility] ([facility]) [address] [place], [address], 09/08/2024 01:10:18 09/07/19 25 09/07/2024 CBC WITH DIFFE RENTI AL/PL ATELE T eos (absolute) 0.2 x10e3 /uL 0.0-0. 4 normal Not Available [facility] ([facility]) [address] [place], [address], 09/08/2024 01:10:18 09/07/19 25 09/07/2024 CBC WITH DIFFE RENTI AL/PL ATELE T baso (absolute) 0.1 x10e3 /uL 0.0-0. 2 normal Not Available [facility] ([facility]) [address] [place], [address], 09/08/2024 01:10:18 09/07/19 25 09/07/2024 CBC WITH DIFFE RENTI AL/PL ATELE T immature granulocytes 0 % not estab. Not Available [facility] ([facility]) [address] [place], [address], 09/08/2024 01:10:18 09/07/19 25 09/07/2024 CBC WITH DIFFE RENTI AL/PL ATELE T immature grans (abs) 0.0 x10e3 /uL 0.0-0. 1 Not Available [facility] ([facility]) [address] [facility], [place], [address], 09/08/2024 01:10:18 09/07/1909/07/2024 CBC WITH DIFFE RENTI AL/PL ATELE T NRBC HOT MIX OPERATOR Not Available [facility] ([facility]) [address] [facility], [place], [address], 09/08/2024 01:10:18 09/07/1909/07/2024 CBC WITH DIFFE RENTI AL/PL ATELE T hematology comments: HOT MIX OPERATOR Not Available [facility] ([facility]) [address] [facility], [place], [address], 09/08/2024 01:10:18 09/07/1909/07/2024 HEPAT IC FUNCT ION PANEL (7) protein, total 7.0 g/dL 6.0-8. 5 normal Not Available [facility] ([facility]) [address] [facility], [place], [address], 09/08/2024 01:10:19 09/07/1909/07/2024 HEPAT IC FUNCT ION PANEL (7) albumin 4.5 g/dL 3.9-4. 9 normal Not Available [facility] ([facility]) [address] [facility], [place], [address], 09/08/2024 01:10:19 09/07/1909/07/2024 HEPAT IC FUNCT ION PANEL (7) bilirubin, total <0.2 mg/dL 0.0-1. 2 Not Available [facility] ([facility]) [address] [facility], [place], [address], 09/08/2024 01:10:09/07/1909/07/2024 HEPAT IC FUNCT ION PANEL (7) bilirubin, direct 0.09 mg/dL 0.00-0 .40 normal Not Available [facility] ([facility]) [address] [place], [address], 09/08/2024 01:10:09/07/1909/07/2024 HEPAT IC FUNCT ION PANEL (7) alkaline phosphatase 62 IU/L 44-121 normal Not Available [facility]) [address] [place], [address], 09/08/2024 01:10:09/07/1909/07/2024 HEPAT IC FUNCT ION PANEL (7) AST (SGOT) 24 IU/L 0-40 normal Not Available [facility] ([facility]) [address] [place], [address], 09/08/2024 01:10:19 09/07/1909/07/2024 HEPAT IC FUNCT ION PANEL (7) ALT (SGPT) 24 IU/L 0-32 normal Not Available [facility] ([facility]) [address] [place], [address], 09/08/2024 01:10:19 09/07/1909/07/2024 THYRO ID PANEL WITH TSH TSH 3.890 uIU/m L 0.450- 4.500 normal Not Available [facility] ([facility]) [address] [place], [address], 09/08/2024 01:10:09/07/1909/07/2024 THYRO ID PANEL WITH TSH thyroxine (T4) 5.6 ug/dL 4.5-12 .0 normal Not Available [facility] ([facility]) [address] [place], [address], 09/08/2024 01:10:19 09/07/1909/07/2024 THYRO ID PANEL WITH TSH T3 uptake 22 % 24-39 below low normal Not Available [facility] ([facility]) [address] [place], [address], 09/08/2024 01:10:19 09/07/19 25 09/07/2024 THYRO ID PANEL WITH TSH free thyroxine index 1.2 1.2-4. 9 normal Not Available [facility] ([facility]) [address] [facility], [place], [address], 09/08/2024 01:10:19 09/07/19 25 09/07/2024 PT AND PTT INR 1.0 0.9-1. 2 Refer ence inter tremayne is for non-a ntico agula moody patie nts. Sugge sted INR thera peuti c range for Vitam in K antag onist thera py: Stand ubaldo Dose (mode rate inten sity thera peuti c range ): 2.0 - 3.0 Highe r inten sity thera peuti c range 2.5 - 3.5 Not Available [facility] ([facility]) [address] [facility], [place], [address], 09/08/2024 01:10:20 09/07/19 25 09/07/2024 PT AND PTT prothrombin time 10.9 sec 9.1-12 .0 normal Not Available [facility] ([facility]) [address] [place], [address], 09/08/2024 01:10:20 09/07/19 25 09/07/2024 PT AND PTT APTT 31 sec 24-33 normal This test has not been valid ated for monit oring unfra ction ated hepar in thera py. aPTT- based thera peuti c range s for unfra ction ated hepar in thera py have not been estab emmanuel su For gener al guide lines on Hepar in monit oring , refer to the [facility]. Not Available [facility] ([facility]) [address] [place], [address], 09/08/2024 01:10:20 09/07/19 25 09/07/2024 HIV-1 /HIV- 2 QUALI TATIV E RNA HIV-1 RNA Non Reacti ve non reacti ve Not Available [facility] ([facility]) [address] [facility], [place], [address], 09/08/2024 01:10:20 09/07/19 25 09/07/2024 HIV-1 /HIV- 2 QUALI TATIV E RNA HIV-2 RNA Non Reacti ve non reacti ve Not Available [facility] ([facility]) [address] [facility], [place], [address], 09/08/2024 01:10:20 09/07/19 25 09/07/2024 HEMOG LOBIN A1C hemoglobin A1C 5.2 % 4.8-5. 6 normal Predi abete s: 5.7 - 6.4 Diabe myla: >6.4 Glyce nirmala contr ol for adult s with diabe myla: <7.0 Not Available [facility] ([facility]) [address] [facility], [place], [address], 09/08/2024 01:10:20 09/07/19 25 09/07/2024 RPR RPR Non Reacti ve non reacti ve Not Available [facility] ([facility]) [address] [facility], [place], [address], 09/08/2024 01:10:21 10/06/19 25 10/05/2024 rapid strep group A, throa t Strep negati ve Not Available [facility] [id number] [place], [address], 10/05/2024 17:03:19 09/17/19 25 09/16/2024 elect aram diogr am No observ ation record ed. [email or web address] [address] [place], [address], 09/16/2024 17:48:25 10/13/19 25 10/11/2024 XR, chest , 2 view No observ ation record ed. [facility] [address], [place], [address], 10/12/2024 09:59:32 Result Notes None recorded. Problems Name Problem SNOMED Code Status Onset Date Resolution Date Notes Provider Name and Address Organization Details Recorded Time Hypothyroid ism 11612049 Active Maribell Mateus null, [place] [facility] 20:10:22 Obesity 008656105 Active Maribell Cook null, [place] [facility] 20:10:27 Acquired absence of uterine cervix 9040762181576 09 Active Maribell Mateus null, [place] [facility] 20:10:16 Lumbar radiculopat hy 067359404 Active 2023 Elenita Hollingswortha HOT MIX OPERATOR [address], [place], [address], [place] [facility] 4 15:26:02 Menopausal symptom 30154800 Active 2024 Elenita Voyda HOT MIX OPERATOR [address], [place], [address], [place] [facility] 5 15:19:37 Mixed anxiety and depressive disorder 834837051 Active 2024 Elenita Vobriseydaa HOT MIX OPERATOR [address], [place], [address], [place] [facility] 5 17:14:21 Pain in throat 104185121 Active 2024 Elenita Voyda HOT MIX OPERATOR [address], [place], [address], [place] [facility] 5 10:12:49 Problem Notes None recorded. Procedures Surgical History Date Name Laterality Status Provider Name and Address Organization Details Recorded Time 01/20/20 24 Date of Last Mammogram completed Maribell Mateus [place] [facility] 04/18/2024 18:51:33 01/16/20 24 Date of Last Colonoscopy completed Maribell Cook [place] [facility] 04/18/2024 18:53:12 01/16/20 24 screening colonoscopy completed Maribelledgardo Ignacio [facility] 04/18/2024 18:54:39 05/05/19 20 liposuction of subcutaneous tissue completed Elenitaradha Hollingswortha HOT MIX OPERATOR [address], [place], [address], [facility] 08/17/2024 16:33:11 05/05/19 13 Partial hysterectomy completed Maribelledgardo Ignacio [facility] 04/17/2024 20:11:25 05/05/19 07 abdominoplasty completed Elenitaradha Hollingswortha HOT MIX OPERATOR [address], [place], [address], [facility] 08/17/2024 16:33:32 05/05/18 98 ligation of fallopian tube completed Not Available [facility] 02/08/2024 05:02:17 procedure completed Elenita Josefbriseydaa HOT MIX OPERATOR [address], [place], [address], [facility] 08/17/2024 16:32:49 procedure completed Elenita Party Over Herebriseydaa HOT MIX OPERATOR [address], [place], [address], [facility] 08/17/2024 16:34:14 sleeve resection of stomach completed Elenita Party Over Herea HOT MIX OPERATOR [address], [place], [address], [facility] 08/17/2024 16:34:39 Imaging Results None recorded. Procedure Notes None recorded. Medical Equipment None Reported. Allergies No known drug allergies Medications Name Sig Start Date Stop Date Status Note LastModified by Organization Details LastModified Time estradiol 0.075 mg/24 hr semiweekl y transderm al patch APPLY 1 PATCH TWICE A WEEK active Not Available Not Available No t Available estradiol 0.05 mg/24 hr semiweekl y transderm al patch APPLY 1 PATCH TOPICALL Y TO SKIN TWICE A WEEK 04/20 completed Not Available Not Available Not Available oxycodone -acetamin ophen 5 mg-325 mg tablet TAKE 1 TABLET BY MOUTH EVERY 6 HOURS NEEDED FOR SEVERE PAIN 04/20 completed Not Available Not Available Not Available cephalexi n 500 mg capsule 1 capsule twice daily , Orally 2023 active Not Available Not Available Not Avai lable bupropion HCl XL 150 mg 24 hr tablet, extended release 1 tablet in the morning Once a day , Orally 04/20 completed Patient stopped this approxim ately 3 weeks ago; states it caused increase d kerry mik for her Not Available Not Available Not Available HOT MIX OPERATOR Thyroid 30 mg tablet TAKE 1 TABLET BY MOUTH EVERY DAY IN THE MORNING FOR HYPOTHYR OIDISM active Not Available Not Available No t Available HOT MIX OPERATOR Thyroid 15 mg tablet 1 tablet on an empty stomach Once a day , Orally 04/05 completed Not Available Not Available Not Available Magdalena 0.025 mg/24 hr transderm al patch 1 patch to skin Two times a Week , Transder mal 04/05 completed Not Available Not Available Not Available Vitals Date Recorded Body height Provider Name an d Address Organization Details Last Updated DateTime 08/16/2024 153.035 cm Elenita Sargent [address], [place], [address], [place] [facility] 08/16/2024 12:15:15 Date Recorded Body height Provider Name an d Address Organization Details Last Updated DateTime 09/09/2024 153.035 cm Elenita Fundboxa [address], [place], [address], [place] [facility] 09/09/2024 11:21:55 Date Recorded Body height Body mass index (BMI) Body weight Body temperature Oxygen saturation Oxygen saturation in Arterial blood by Pulse oximetry Heart rate Respiratory rate Systolic blood pressure Diastolic blood pressure Provider Name and Address Organization Details Last Updated DateTime 5 153.04 cm 28.1 kg/m2 65824.8 9 g 97.7 [degF] 98 % 98 % 58 /min 14 /min 118 mm[Hg] 78 mm[Hg] Henny [place] [facility] 16:53:06 Date Recorded Body height Body mass index (BMI) Body weight Body temperature Oxygen saturation Oxygen saturation in Arterial blood by Pulse oximetry Heart rate Systolic blood pressure Diastolic blood pressure Provider Name and Address Organization Details Last Updated DateTime 153.04 cm 28.7 kg/m2 45825.3 9 g 97.8 [degF] 99 % 99 % 68 /min 118 mm[Hg] 66 mm[Hg] Henny [place] [facility] 16:48:09 Date Recorded Body height Provider Name an d Address Organization Details Last Updated DateTime 10/12/2024 153.04 cm Elenita Arie Mik [address] [facility] [address] [place], [address], [place] [facility] 10/12/2024 09:58:07 Social History Question Answer Notes LastModified by Organizat ion Details LastModified Time Tobacco Smoking Status Former Smoker Maribell Ignacio casie, [place] - [facility] 04/18/2024 18:50:42 What Is Your Level Of Caffeine Consumption? Moderate [email or web address] Information not available 04/18/2024 When Did You Quit Smoking? 1-5yearssince lastcigarette 2 [email or web address] Information not available 04/18/2024 Cigar Smoking No Information not available 10/05/2024 What Was The Date Of Your Most Recent Tobacco Screening? 09/16/2024 Information not available 10/05/2024 What Is Your Current Pack Years? 10packyears [email or web address] Information not available 04/18/2024 Have You Ever Been Counseled For Unhealthy Alcohol Use? No Information not available 10/05/2024 Has Tobacco Cessation Counseling Been Provided? Yes Information not available 10/05/2024 On What Date Was Tobacco Cessation Counseling Provided? 09/16/2024 Information not available 10/05/2024 Sex: Unknown Functional Status Question Answer Note LastModified by Organizat ion Details LastModified Time Do you use any illicit or recreational drugs? No Information not available 10/05/2024 Do you or have you ever used any other forms of tobacco or nicotine? Yes [email or web address] Information not available 04/18/2024 What is your level of alcohol consumption? Occasional Information not available 10/05/2024 Do you or have you ever used smokeless tobacco? Never used smokeless tobacco [email or web address] Information not available 04/18/2024 Are you currently employed? 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 Current user of electronic cigarettes Vape / e-cigarette s 5mg nicotine [id number] Information not available 04/18/2024 Mental Status None recorded. Family History Relationship Description Onset Age of this Age Resolved Age Notes LastModified by Organization Details LastModified Time Mother Alive Not available 1 06/19/2023 18:45:30 Father Alive [email or web address] Not available 1 06/19/2023 18:45:30 Brother Alive [email or web address] Not available 04/18/2024 18:45:30 Son Alive Not available 1 06/19/2023 18:45:30 Son Alive [email or web address] Not available 1 06/19/2023 18:45:30 Sister Alive Not available 1 06/19/2023 18:45:30 Sister Alive [email or web address] Not available 1 06/19/2023 18:45:30 Sister Alive [email or web address] Not available 1 06/19/2023 18:45:30 Sister Alive [email or web address] Not available 1 06/19/2023 18:45:30 Daughter Family member Daught er and her spouse deceas ed from MVA. Has custod y of her daught er's childr en, 1 boy 1 girl. Childr en are health y. [email or web address] Not available 04/18/2024 18:46:28 Medical History No medical history recorded. Gynecological History Statement/Question Response Date of Last Colonoscopy 01/16/2024 Date of Last Mammogram 01/20/2024 Obstetrics History GPAL:G 0 P 0 0 0 0 Immunizations Vaccine Type Date Status Note Provider Nam e and Address Organization Details Recorded Time Influenza, split virus, trivalent, PF 04/20/2024 completed Elenita Sargent HOT MIX OPERATOR [facility] [address], [place], [address], [place] [facility] 04/20/2024 17:34:38 Past Encounters Encounter ID Performer Location Encounter Start Date Encounter Closed Date Diagnosis/Indication Diagnosis SNOMED-CT Code Diagnosis ICD10 Code Diagnosis Note [id number] Elenita Sargent NP [facility] [address] [place] [address] 04/20/2024 14:23:57 04/21/2024 09:43:23 Lumbar radiculopathy 024697376 M54.16 04/2024 MRI lumbar spine indicate impression of left paracentra l disc protrusion L5-S1 likely impinging descending left-sided S1-2 nerve root.Pt wishes to see spinal specialist , referral placed.She will continue wall pilates as she thinks this many have contribute d to reduced severity of ssx. 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 All questions and concerns were addressed. Depressed mood 558147214 F32.A Reports mood overall is better and no longer taking bupropion. She denies concern.Pt will notify us for change in condition. Administra tion of influenza vaccine 32138532 Z23 [id number] Sarah Ng MD [facility] [place] [address] [place] [address] 05/19/2024 11:54:58 05/19/2024 12:15:15 Acute upper respiratory infection 52221224 J06.9 Her symptoms are consistent with a viral upper respirator y infection. Antibiotic s are not clinically indicated at this time. I discussed this with the patient and she agrees. She can take a home COVID test if she would like and is advised to call with results if she does. She is advised to rest, increase fluid intake, get a humidifier for her bedroom and may continue over-the-c ounter symptomati c medication as needed. She is advised to call or follow-up if symptoms worsen, change, or do not improve and resolve as expected. She voiced understand ing and agreement with the plan. Questions were answered to sonia on. 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 All questions and concerns were addressed. Menopausal symptom 95397 002 N95.1 Pt doing really well w/current Magdalena dosage.She wishes to CPM and requests 3 month RF.RF ordered to her preferred pharmacy. Mixed anxi ety and depressive disorder 132580576 F41.8 Pt previously took wellbutrin 150mg for 2 months but quit it thinking it caused agitation at times. She is thinking of restarting this med due to anxiety and mood. She still has at home and will check expiration date prior to restarting med. Pt will let us know how she would like us to help her with this. Declines counseling referral. Encouraged daily exercise, good nutrition, adequate sleep, etc. [id number] Elenita Sargent NP [facility] [place] [address] [place] [address] 08/16/2024 12:14:50 08/16/2024 12:58:12 Pre-surgery testing 809660355 Z01.89 Pt requests [facility] before face lift surgical procedure which is scheduled for 09/29/24 in [place]. She is not sure what labs are needed, she will call us back when she finds her paperwork at home. She does now she needs updated CBC, CMP, and thyroid panel. Lab orders placed to be completed 2 weeks before procedure. Hypothyroidism 13178877 E03.9 Last labs 08/03/24 thyroid panel WNL, TPO >600 noted. 12/2023 thyroid panel WNL. 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 All questions and concerns were addressed. Test resul t to patient by telephone [id number] Z71.2 [id number] Elenita Sargent NP [facility] [place] [address] [place] [address] 09/09/2024 11:20:55 09/09/2024 16:06:05 Discussion 443864997 Z71.2 Preoperati ve procedure 064108937 Z01.818 Pt has face lift surgical procedure scheduled for 09/29/24 in [place].Rev iewed all pt's requested lab testing results with her.She is aware there are no concerning findings.P t is aware she will be responsibl e for getting results of tests to her surgeon in [place] as Joselin was unable to find him in the system to CC results to when labs were ordered. Pt knows to look on her portal for results or [facility] website.Carly zuniga states she still needs EKG and scheduled this with us to be done in clinic 09/16/24. [id number] Elenita Sargent NP [address] [address] 09/16/2024 16:09:11 09/16/2024 17:12:54 Preoperative procedure [id number] Z01.818 Pt has face lift surgical procedure scheduled for 09/29/24 in [place].EKG performed - very mild bradycardi a at 55bpm, otherwise NSR. Pt has no hx cardio concerns.C XR was ordered and sent to [facility] on 09/06/24. Pt still to complete this and provide results to her surgeon.Carly zuniga has had bloodwork completed and provided this herself to surgeon as Joselin was unable to find him in the system to CC results to when labs were ordered. Pt knows to look on her portal for results or [facility] website.Pt is aware she will be responsibl e for getting results of tests [place] her scheduled CPE 11/16/24. [id number] Elenita Sargent NP [facility] [address] 10/05/2024 16:41:08 10/05/2024 17:14:04 Pain in throat 275675680 J02.9 Centor Score with very low likelihood of strep infection, however rapid strep testing done per pt request.Al l rapid testing in office was negative.S uspect viral URI.Encour aged rest, hydration, hand washing, small bland meals, and OTC tx as discussed for ssx mgnt. She has Flonase and Mucinex at home.Pt verbalized understand ing and agreement with above POC. All questions and concerns were addressed. [id number] Elenita Sargent NP [facility] [address] [place] [address] 10/12/2024 09:57:54 10/12/2024 10:22:54 Discussion about procedure 548591319 Z71.2 Pt was contacted via phone for CXR results review.Dis cussed each result in detail with patient. Pain in throat 913669946 J02.9 SSx that initially were evaluated here 10/05/24 have since improved significan tly per pt report.She was encouraged to continue with conservati ve care at home, rest, hydration, and hand washing.Pt verbalized understand ing and agreement with above POC. All questions and concerns were addressed. Health Concerns Section Related Observation LastModified by Organization Detai ls LastModified Time None Recorded Concern Status LastModified by Organization Details LastModified Time None Recorded Advance Directives Directive None Recorded Payers Insurance Date Sequence Insurance Name Policy Number Policy Meyer Covered Member ID Meyer Member ID Guarantor Name 05/14/2024 [place] [id number] - ALL PLANS - [MOVED-BILLE D] UNKNOWN Harvey Flores [id number] Shanika Flores 08/17/[address] ALL PLANS - [MOVED-BILLE D] [id number] Harvey Flores [id number] Shanika Flores 03/26/2024 1 *SELF PAY* UNKNOWN Harvey Flores [id number] Shanika Flores 04/20/2024 1 *SELF PAY* UNKNOWN Harvey Flores [id number] Shanika Flores 12/02/2023 1 *SELF PAY* UNKNOWN Harvey Flores [id number] Shanika Flores 12/15/2023 1 *SELF PAY* UNKNOWN Harvey Flores [id number] Shanika Flores 03/19/2024 1 *SELF PAY* UNKNOWN Harvey Flores [id number] Shanika Flores 05/11/2024 [place] [id number] - ALL PLANS - [MOVED-BILLE D] Shanika Flores [id number] Shanika Flores 10/07/2024 [facility] - ALL PLANS - [MOVED-BILLE D] [id number] Harvey Flores [id number] Shanika Flores 10/07/2024 [facility] 513 - ALL PLANS - [MOVED-BILLE D] [id number] Harvey Aguilerao [id number] Shanika Flores Notes Date Note Type Note Provider Name and Address Organization Details Recorded Time 08/16/2024 text/html Pt presents VIA PHONE for F/U LAB RESULTS. Pt doing well w/o concerns.She does request additional labs ordered as she Call placed at: 1102.Call ended at: 1112.This encounter was undertaken via [telephone]. I introduced myself as SHANIKA Coleman, and greeted the patient by name and then verified their location. We reviewed the appropriateness of virtual care for this visit and the limitations of telemedicine. All issues below were discussed and addressed but no physical exam was performed except as documented. If it was felt the patient should be evaluated [id number], they were directed to the clinic for care either now or at a subsequent visit as indicated below. Verbal consent for telemedicine visit obtained from the patient. Elenita Sargent [address], [place], [address], [facility] 08/16/2024 12:32:14 09/09/2024 text/html Pt presents VIA PHONE for F/U LAB RESULTS. Call placed at: [phone].Call ended at: [phone].This encounter was undertaken via [telephone]. I introduced myself as SHANIKA Coleman, and greeted the patient by name and then verified their location. We reviewed the appropriateness of virtual care for this visit and the limitations of telemedicine. All issues below were discussed and addressed but no physical exam was performed except as documented. If it was felt the patient should be evaluated [id number], they were directed to the clinic for care either now or at a subsequent visit as indicated below. Verbal consent for telemedicine visit obtained from the patient. Elenita Sargent HOT MIX OPERATOR [address], [place], [address], [facility] 09/09/2024 11:25:20 09/16/2024 text/html Pt presents for pre-op EKG.She denies all cardiopulmonary symptoms and issues. She is feeling great and has no concerns.Pt has face lift surgical procedure scheduled for 09/29/24 in [place]. Elenita Sargent HOT MIX OPERATOR [address], [place], [address], [place] [facility] 09/16/2024 16:58:07 10/05/2024 text/html Pt presents for C/O throat, chest, and nasal issues x 6 days.SSx: chest tightness, dry cough, sore throat (R>L), white spots, runny nose, SOLIS. Denies fevers, myalgias, ear pain, facial/sinus congestion, dizziness.Tx: NyQuil, DayQuil restarted vaping last week - unsure if sore throat is d/t this.better overall but some ssx still lingering Elenita Sargent HOT MIX OPERATOR [address], [place], [address], [place] - [facility] 10/05/2024 17:12:12 10/12/2024 text/html Pt presents VIA PHONE for F/U CXR RESULTS. She reports sore throat and URI ssx from OV 10/05/24 have improved. She no longer has sore throat, but did develop a significant cough that was worse at night. She reported strenuous coughing fits that have subsided in the last few nights. She denies any wheezing, difficulty breathing, painful breathing, fever, etc. Pt reports a fall around 2013 that resulted in R clavicle fracture. She is aware of deformity there. Call placed at: [phone].Call ended at: [phone].This encounter was undertaken via [telephone]. I introduced myself as SHANIKA Coleman, and greeted the patient by name and then verified their location. We reviewed the appropriateness of virtual care for this visit and the limitations of telemedicine. All issues below were discussed and addressed but no physical exam was performed except as documented. If it was felt the patient should be evaluated [id number], they were directed to the clinic for care either now or at a subsequent visit as indicated below. Verbal consent for telemedicine visit obtained from the patient. Elenita Sargent HOT MIX OPERATOR [address], [place], [address], [place] [facility] 10/12/2024 10:13:24 OBGyn Episode No OBEpisode recorded.
--- OUTSIDE RECORDS SUMMARY | 2024-10-16 11:00 | XMS_ITS ---
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 Name Role Phone Elenita Sargent Primary Care Provider REASON FOR VISIT PRTL: Referral Encounters Encounter Location Date Provider Diagnosis [facility] [address] [place] [address] 03/08/2024 Elenita Sargent PLAN OF TREATMENT Next Appt Details Provider Name:Elenita Sargent , 11/16/2024 08:30:00 AM, [address] [place], [address], Progress Notes * Bobby FLORESLaina:1975 (48 yo F)Acc No.[id number]:03/08/2024 Patient: Shanika FLORES :1975 Age:48 Y Sex:Female Address:[address] [place] [address] Subjective: * Chief Complaints: * PRTL: Referral * Medical History: * Surgical History: * Hospitalization/Major Diagno stic Procedure: * Medications: Objective: Assessment: Plan: * Treatment: * Procedure Codes: * true * Date:
--- OUTSIDE RECORDS SUMMARY | 2024-10-16 11:00 | XMS_ITS | Data Portability ---
Author Organization [place] - [facility] [employer], Main Office Address [address] [place] [address] Assessment No assessment recorded. Plan of Treatment Reminders Order Date Submit Date Provider Last Modified By Organization Details Last Modified Time Details Appointments None recorde d. Lab CBC w/ auto diff 2022 023 [id number] Not available 3 07:42:55 CMP, serum or plasma 2022 023 [email or web address] Not available 3 07:42:55 PT/PTT, plasma 2022 023 [id number] Not available 3 07:42:55 INR, plasma 2022 023 [email or web address] Not available 3 07:42:55 beta-HC G, qualita tive, serum or plasma 2022 023 [email or web address] Not available 3 07:42:55 urinaly sis complet e, reflex culture 2022 023 [email or web address] Not available 3 07:42:56 T3, free, serum or plasma 2022 023 [email or web address] Not available 3 07:42:56 T4, free, serum 2022 023 [email or web address] Not available 3 07:42:56 TSH, serum or plasma 2022 023 [id number] Not available 3 07:42:56 HIV 1+2 Ab + HIV1 p24 Ag, quantit ative immunoa ssay, serum 2022 023 [id number] Not available 3 07:42:56 Referral None recorde d. Procedures None recorde d. Surgeries None recorde d. Imaging MAMMO, screeni ng, digital , bilater al - *Please call pt to schedul e* 2022 023 [email or web address] ([facility]), [address] [place], [address], 4 16:00:53 MRI, lumbar spine, w/o contras t - *Please call pt to schedul e* 2022 023 [id number] [facility], [address] [facility], [place], [address], 4 09:20:11 electro cardiog ricky 2022 023 [email or web address] [facility] [address], [place], [address], 3 15:32:03 XR, chest, 2 view 2022 023 [facility] ([facility]), [address] [place], [address], 3 17:13:40 Medication Orders Linzess 145 mcg capsule 2022 023 [facility], [address] [facility], [place], [address], 3 09:51:51 Patient TargetsNo targets recorded. Patient InstructionsNo instructions recorded. Reason for Referral None Reported. Results Created Date Observation Date Name Description Value Unit Range Abnormal Flag Note LastModifiedBy Organization Detail LastModifiedTime 06/23/19 22 06/24/2021 T4,FR EE(DI RECT) T4,free(dire ct) 0.92 NG/dL 0.82-1 .77 Not Available [facility] ([facility]) [address] [place], [address], 06/28/2021 20:08:47 06/23/19 22 06/24/2021 HIV AB/P2 4 AG WITH REFLE X HIV Ab/P24 Ag screen non reacti ve non reacti ve HIV Negat heath HIV-1 /HIV- 2 antib odies and HIV-1 p24 antig en were NOT detec moody. There is no labor atory evide nce of HIV infec tion. Not Available [facility] ([facility]) [address] [facility], [place], [address], 06/28/2021 20:08:47 06/23/19 22 06/24/2021 HCG,B ETA SUBUN IT, QNT HCG,beta subunit,qnt, serum <1 mIU/m L Femal e (Non- pregn ant) 0 - 5 (Post menop ausal ) 0 - 8 Femal e (Preg nant) Weeks of Gesta tion 3 6 - 71 4 10 - 750 5 713 - 7138 6 158 - 26253 7 3647 -3384 63 8 45113 -3088 71 9 78928 -6892 10 10 49307 -8890 77 12 91169 -9316 12 14 70139 - 82930 15 16887 - 65756 16 0961 - 57357 17 9217 - 19563 18 0894 - [id number] Gregory ECLIA metho dolog y Not Available [facility] ([facility]) [address] [facility], [place], [address], 06/28/2021 20:08:46 06/23/19 22 06/28/2021 THYRO ID STIMU LATIN G HORMO NE TSH-icma 3.8 uu/mL Refer ence Range : Non-P regna nt Adult 0.450 -4.50 0 Pregn alecia First Trime ster 0.100 -4.00 0 Secon d Trime ster 0.200 -4.00 0 Third Trime ster 0.300 -4.50 0 Not Available [facility] [address] [facility], [place], [address], 06/28/2021 20:08:46 06/23/19 22 06/24/2021 PT AND PTT INR 1.0 0.9-1. 2 Refer ence inter tremayne is for non-a ntico agula moody patie nts. Sugge sted INR thera peuti c range for Vitam in K antag onist thera py: Stand ubaldo Dose (mode rate inten sity thera peuti c range ): 2.0 - 3.0 Highe r inten sity thera peuti c range 2.5 - 3.5 Not Available [facility] ([facility]) [address] [place], [address], 06/28/2021 20:08:46 06/23/19 22 06/24/2021 PT AND PTT prothrombin time 10.5 sec 9.1-12 .0 Not Available [facility] ([facility]) [address] [place], [address], 06/28/2021 20:08:46 06/23/19 22 06/24/2021 PT AND PTT APTT 29 sec 24-33 This test has not been valid ated for monit oring unfra ction ated hepar in thera py. aPTT- based thera peuti c range s for unfra ction ated hepar in thera py have not been estab emmanuel su For gener al guide lines on Hepar in monit oring , refer to the [facility] Direc tory of Mervin carrillo. Not Available [facility] ([facility]) [address] [place], [address], 06/28/2021 20:08:46 06/23/19 22 06/24/2021 URINA LYSIS , COMPL ETE specific gravity 1.024 1.005- 1.030 Not Available [facility] ([facility]) [address] [place], [address], 06/28/2021 20:08:45 06/23/19 22 06/24/2021 URINA LYSIS , COMPL ETE pH 6.0 5.0-7. 5 Not Available [facility] ([facility]) [address] [place], [address], 06/28/2021 20:08:45 06/23/19 22 06/24/2021 URINA LYSIS , COMPL ETE urine-color yellow yellow Not Available [facility] ([facility]) [address] [place], [address], 06/28/2021 20:08:45 06/23/19 22 06/24/2021 URINA LYSIS , COMPL ETE appearance clear clear Not Available [facility] ([facility]) [address] [place], [address], 06/28/2021 20:08:45 06/23/19 22 06/24/2021 URINA LYSIS , COMPL ETE WBC esterase negati ve negati ve Not Available [facility] ([facility]) [address] [place], [address], 06/28/2021 20:08:45 06/23/19 22 06/24/2021 URINA LYSIS , COMPL ETE protein negati ve negati ve/tra ce Not Available [facility] ([facility]) [address] [place], [address], 06/28/2021 20:08:45 06/23/19 22 06/24/2021 URINA LYSIS , COMPL ETE glucose negati ve negati ve Not Available [facility] ([facility]) [address] [place], [address], 06/28/2021 20:08:45 06/23/19 22 06/24/2021 URINA LYSIS , COMPL ETE ketones negati ve negati ve Not Available [facility] ([facility]) [address] [place], [address], 06/28/2021 20:08:45 06/23/19 22 06/24/2021 URINA LYSIS , COMPL ETE occult blood negati ve negati ve Not Available [facility] ([facility]) [address] [facility], [place], [address], 06/28/2021 20:08:45 06/23/19 22 06/24/2021 URINA LYSIS , COMPL ETE bilirubin negati ve negati ve Not Available [facility] ([facility]) [address] [facility], [place], [address], 06/28/2021 20:08:45 06/23/19 22 06/24/2021 URINA LYSIS , COMPL ETE urobilinogen ,semi-qn 0.2 mg/dL 0.2-1. 0 Not Available [facility] ([facility]) [address] [facility], [place], [address], 06/28/2021 20:08:45 06/23/19 22 06/24/2021 URINA LYSIS , COMPL ETE nitrite, urine negati ve negati ve Not Available [facility] ([facility]) [address] [facility], [place], [address], 06/28/2021 20:08:45 06/23/19 22 06/24/2021 URINA LYSIS , COMPL ETE microscopic examination commen t Micro scopi c follo ws if indic ated. Not Available [facility] ([facility]) [address] [facility], [place], [address], 06/28/2021 20:08:45 06/23/19 22 06/24/2021 URINA LYSIS , COMPL ETE microscopic examination see below: Micro scopi c was indic ated and was perfo rmed. Not Available [facility] ([facility]) [address] [place], [address], 06/28/2021 20:08:45 06/23/19 22 06/24/2021 URINA LYSIS , COMPL ETE WBC none seen /hpf 0 - 5 Not Available [facility] ([facility]) [address] [facility], [place], [address], 06/28/2021 20:08:45 06/23/19 22 06/24/2021 URINA LYSIS , COMPL ETE RBC 0-2 /hpf 0 - 2 Not Available [facility] ([facility]) [address] [facility], [place], [address], 06/28/2021 20:08:45 06/23/19 22 06/24/2021 URINA LYSIS , COMPL ETE epithelial cells (non renal) 0-10 /hpf 0 - 10 Not Available [facility] ([facility]) [address] [facility], [place], [address], 06/28/2021 20:08:45 06/23/19 22 06/24/2021 URINA LYSIS , COMPL ETE epithelial cells (renal) systems accountant Not Available [facility] ([facility]) [address] [facility], [place], [address], 06/28/2021 20:08:45 06/23/19 22 06/24/2021 URINA LYSIS , COMPL ETE casts none seen /lpf none seen Not Available [facility] ([facility]) [address] [facility], [place], [address], 06/28/2021 20:08:45 06/23/19 22 06/24/2021 URINA LYSIS , COMPL ETE cast type systems accountant Not Available [facility] ([facility]) [address] [facility], [place], [address], 06/28/2021 20:08:45 06/23/19 22 06/24/2021 URINA LYSIS , COMPL ETE crystals systems accountant Not Available [facility] ([facility]) [address] [facility], [place], [address], 06/28/2021 20:08:45 06/23/19 22 06/24/2021 URINA LYSIS , COMPL ETE crystal type systems accountant Not Available [facility] ([facility]) [address] [place], [address], 06/28/2021 20:08:45 06/23/19 22 06/24/2021 URINA LYSIS , COMPL ETE mucus threads systems accountant Not Available [facility] ([facility]) [address] [facility], [place], [address], 06/28/2021 20:08:45 06/23/19 22 06/24/2021 URINA LYSIS , COMPL ETE bacteria few none seen/f ew Not Available [facility] ([facility]) [address] [facility], [place], [address], 06/28/2021 20:08:45 06/23/19 22 06/24/2021 URINA LYSIS , COMPL ETE yeast systems accountant Not Available [facility] ([facility]) [address] [facility], [place], [address], 06/28/2021 20:08:45 06/23/19 22 06/24/2021 URINA LYSIS , COMPL ETE trichomonas systems accountant Not Available [facility] ([facility]) [address] [place], [address], 06/28/2021 20:08:45 06/23/19 22 06/24/2021 URINA LYSIS , COMPL ETE comment systems accountant Not Available [facility] ([facility]) [address] [place], [address], 06/28/2021 20:08:45 06/23/19 22 06/24/2021 COMP. METAB OLIC PANEL (14) glucose 80 mg/dL 65-99 Not Available [facility] ([facility]) [address] [place], [address], 06/28/2021 20:08:45 06/23/19 22 06/24/2021 COMP. METAB OLIC PANEL (14) BUN 16 mg/dL 6-24 Not Available [facility] ([facility]) [address] [facility], [place], [address], 06/28/2021 20:08:45 06/23/19 22 06/24/2021 COMP. METAB OLIC PANEL (14) creatinine 0.71 mg/dL 0.57-1 .00 Eff ectiv e Febru jessica 2021 [facility] will begin repor ting the 2020 CKD-E PI creat inine equat ion that estim ates kidne y funct ion witho ut a race varia ble. Not Available [facility] ([facility]) [address] [facility], [place], [address], 06/28/2021 20:08:45 06/23/19 22 06/24/2021 COMP. METAB OLIC PANEL (14) eGFR if nonafricn AM 102 mL/mi n/1.7 3 >59 Not Available [facility] ([facility]) [address] [facility], [place], [address], 06/28/2021 20:08:45 06/23/19 22 06/24/2021 COMP. METAB OLIC PANEL (14) eGFR if africn AM 117 mL/mi n/1.7 3 >59 In accor dance with recom menda tions from the NKF-A SN Task force , [facility] is in the proce ss of updat ing its eGFR calcu latio n to the 2020 CKD-E PI creat inine equat ion that estim ates kidne y funct ion witho ut a race varia ble. Not Available [facility] ([facility]) [address] [place], [address], 06/28/2021 20:08:45 06/23/19 22 06/24/2021 COMP. METAB OLIC PANEL (14) BUN/creatini ne ratio 23 9-23 Not Available [facility] ([facility]) [address] [place], [address], 06/28/2021 20:08:45 06/23/19 22 06/24/2021 COMP. METAB OLIC PANEL (14) sodium 142 mmol/ L 134-14 4 Not Available [facility] ([facility]) [address] [place], [address], 06/28/2021 20:08:45 06/23/19 22 06/24/2021 COMP. METAB OLIC PANEL (14) potassium 4.5 mmol/ L 3.5-5. 2 Not Available [facility] ([facility]) [address] [place], [address], 06/28/2021 20:08:45 06/23/19 22 06/24/2021 COMP. METAB OLIC PANEL (14) chloride 102 mmol/ L 96-106 Not Available [facility] ([facility]) [address] [facility] [place], [address], 06/28/2021 20:08:45 06/23/19 22 06/24/2021 COMP. METAB OLIC PANEL (14) carbon dioxide, total 24 mmol/ L 20-29 Not Available [facility] ([facility]) [address] [facility] [place], [address], 06/28/2021 20:08:45 06/23/19 22 06/24/2021 COMP. METAB OLIC PANEL (14) calcium 9.5 mg/dL 8.7-10 .2 Not Available [facility] ([facility]) [address] [place], [address], 06/28/2021 20:08:45 06/23/19 22 06/24/2021 COMP. METAB OLIC PANEL (14) protein, total 7.2 g/dL 6.0-8. 5 Not Available [facility] ([facility]) [address] [facility] [place], [address], 06/28/2021 20:08:45 06/23/19 22 06/24/2021 COMP. METAB OLIC PANEL (14) albumin 4.3 g/dL 3.8-4. 8 Not Available [facility] ([facility]) [address] [facility] [place], [address], 06/28/2021 20:08:45 06/23/19 22 06/24/2021 COMP. METAB OLIC PANEL (14) globulin, total 2.9 g/dL 1.5-4. 5 Not Available [facility] ([facility]) [address] [facility] [place], [address], 06/28/2021 20:08:45 06/23/19 22 06/24/2021 COMP. METAB OLIC PANEL (14) A/G ratio 1.5 1.2-2. 2 Not Available [facility] ([facility]) [address] [facility] [place], [address], 06/28/2021 20:08:45 06/23/19 22 06/24/2021 COMP. METAB OLIC PANEL (14) bilirubin, total 0.4 mg/dL 0.0-1. 2 Not Available [facility] ([facility]) [address] [facility] [place], [address], 06/28/2021 20:08:45 06/23/19 22 06/24/2021 COMP. METAB OLIC PANEL (14) alkaline phosphatase 57 IU/L 44-121 Not Available [facility] [address] [facility] [place], [address], 06/28/2021 20:08:45 06/23/19 22 06/24/2021 COMP. METAB OLIC PANEL (14) AST (SGOT) 56 IU/L 0-40 above high normal Not Available [facility] ([facility]) [address] [facility] [place], [address], 06/28/2021 20:08:45 06/23/19 22 06/24/2021 COMP. METAB OLIC PANEL (14) ALT (SGPT) 59 IU/L 0-32 above high normal Not Available [facility] ([facility]) [address] [facility], [place], [address], 06/28/2021 20:08:45 06/23/19 22 06/24/2021 CBC WITH DIFFE RENTI AL/PL ATELE T WBC 4.6 x10e3 /uL 3.4-10 .8 Not Available [facility] ([facility]) [address] [facility], [place], [address], 06/28/2021 20:08:45 06/23/19 22 06/24/2021 CBC WITH DIFFE RENTI AL/PL ATELE T RBC 4.09 x10e6 /uL 3.77-5 .28 Not Available [facility] ([facility]) [address] [place], [address], 06/28/2021 20:08:45 06/23/19 22 06/24/2021 CBC WITH DIFFE RENTI AL/PL ATELE T hemoglobin 12.5 g/dL 11.1-1 5.9 Not Available [facility] ([facility]) [address] [place], [address], 06/28/2021 20:08:45 06/23/19 22 06/24/2021 CBC WITH DIFFE RENTI AL/PL ATELE T hematocrit 37.5 % 34.0-4 6.6 Not Available [facility] ([facility]) [address] [place], [address], 06/28/2021 20:08:45 06/23/19 22 06/24/2021 CBC WITH DIFFE RENTI AL/PL ATELE T MCV 92 fL 79-97 Not Available [facility] ([facility]) [address] [place], [address], 06/28/2021 20:08:45 06/23/19 22 06/24/2021 CBC WITH DIFFE RENTI AL/PL ATELE T MCH 30.6 pg 26.6-3 3.0 Not Available [facility] ([facility]) [address] [facility], [place], [address], 06/28/2021 20:08:45 06/23/19 22 06/24/2021 CBC WITH DIFFE RENTI AL/PL ATELE T MCHC 33.3 g/dL 31.5-3 5.7 Not Available [facility] ([facility]) [address] [facility], [place], [address], 06/28/2021 20:08:45 06/23/19 22 06/24/2021 CBC WITH DIFFE RENTI AL/PL ATELE T RDW 12.3 % 11.7-1 5.4 Not Available [facility] ([facility]) [address] [facility], [place], [address], 06/28/2021 20:08:45 06/23/19 22 06/24/2021 CBC WITH DIFFE RENTI AL/PL ATELE T platelets 225 x10e3 /uL 150-45 0 Not Available [facility] ([facility]) [address] [facility], [place], [address], 06/28/2021 20:08:45 06/23/19 22 06/24/2021 CBC WITH DIFFE RENTI AL/PL ATELE T neutrophils 53 % not estab. Not Available [facility] ([facility]) [address] [place], [address], 06/28/2021 20:08:45 06/23/19 22 06/24/2021 CBC WITH DIFFE RENTI AL/PL ATELE T lymphs 36 % not estab. Not Available [facility] ([facility]) [address] [place], [address], 06/28/2021 20:08:45 06/23/19 22 06/24/2021 CBC WITH DIFFE RENTI AL/PL ATELE T monocytes 6 % not estab. Not Available [facility] ([facility]) [address] [place], [address], 06/28/2021 20:08:45 06/23/19 22 06/24/2021 CBC WITH DIFFE RENTI AL/PL ATELE T eos 4 % not estab. Not Available [facility] ([facility]) [address] [facility], [place], [address], 06/28/2021 20:08:45 06/23/19 22 06/24/2021 CBC WITH DIFFE RENTI AL/PL ATELE T basos 1 % not estab. Not Available [facility] ([facility]) [address] [facility], [place], [address], 06/28/2021 20:08:45 06/23/19 22 06/24/2021 CBC WITH DIFFE RENTI AL/PL ATELE T immature cells systems accountant Not Available [facility] ([facility]) [address] [place], [address], 06/28/2021 20:08:45 06/23/19 22 06/24/2021 CBC WITH DIFFE RENTI AL/PL ATELE T neutrophils (absolute) 2.5 x10e3 /uL 1.4-7. 0 Not Available [facility] ([facility]) [address] [place], [address], 06/28/2021 20:08:45 06/23/19 22 06/24/2021 CBC WITH DIFFE RENTI AL/PL ATELE T lymphs (absolute) 1.7 x10e3 /uL 0.7-3. 1 Not Available [facility] ([facility]) [address] [place], [address], 06/28/2021 20:08:45 06/23/19 22 06/24/2021 CBC WITH DIFFE RENTI AL/PL ATELE T monocytes(ab solute) 0.3 x10e3 /uL 0.1-0. 9 Not Available [facility] ([facility]) [address] [facility], [place], [address], 06/28/2021 20:08:45 06/23/19 22 06/24/2021 CBC WITH DIFFE RENTI AL/PL ATELE T eos (absolute) 0.2 x10e3 /uL 0.0-0. 4 Not Available [facility] ([facility]) [address] [facility], [place], [address], 06/28/2021 20:08:45 06/23/19 22 06/24/2021 CBC WITH DIFFE RENTI AL/PL ATELE T baso (absolute) 0.0 x10e3 /uL 0.0-0. 2 Not Available [facility] ([facility]) [address] [facility], [place], [address], 06/28/2021 20:08:45 06/23/19 22 06/24/2021 CBC WITH DIFFE RENTI AL/PL ATELE T immature granulocytes 0 % not estab. Not Available [facility] ([facility]) [address] [facility], [place], [address], 06/28/2021 20:08:45 06/23/19 22 06/24/2021 CBC WITH DIFFE RENTI AL/PL ATELE T immature grans (abs) 0.0 x10e3 /uL 0.0-0. 1 Not Available [facility] ([facility]) [address] [place], [address], 06/28/2021 20:08:45 06/23/19 22 06/24/2021 CBC WITH DIFFE RENTI AL/PL ATELE T NRBC systems accountant Not Available [facility] ([facility]) [address] [facility], [place], [address], 06/28/2021 20:08:45 06/23/19 22 06/24/2021 CBC WITH DIFFE RENTI AL/PL ATELE T hematology comments: systems accountant Not Available [facility] ([facility]) [address], [place], [address], 06/28/2021 20:08:45 08/28/19 22 08/24/2021 US, neck, soft tissu e No observ ation record ed. MIGRATION. [facility] [address], [place], [address], 07/03/2022 08:14:59 05/29/19 23 05/28/2022 MAMMO , diagn ostic , digit al, bilat eral No observ ation record ed. MIGRATION. [address], [place], [address], 07/03/2022 08:14:59 06/26/19 23 06/26/2022 XR, lumba r spine No observ ation record ed. MIGRATION. [address], [place], [address], 07/03/2022 08:14:59 03/18/20 elect aram diogr am No observ ation record ed. [email or web address] [facility] [address], [place], [address], 03/18/2023 10:50:53 03/20/20 23 03/20/2023 XR, chest , 2 view No observ ation record ed. [email or web address] [facility] [address], [place], [address], 03/25/2023 12:03:42 03/20/20 23 03/20/2023 XR, chest , 2 view No observ ation record ed. [email or web address] [address], [place], [address], 09/19/2023 16:00:46 Result Notes None recorded. Problems Name Problem SNOMED Code Status Onset Date Resolution Date Notes Provider Name and Address Organization Details Recorded Time Tobacco user 179019837 Active Not Available [facility] 3 08:09:41 Chronic back pain 483883820 Active Not Available [facility] 3 08:09:41 Constipati on 59129456 Active Not Available [facility] 3 08:09:41 Overweight 842764677 Active Not Available [facility] 3 08:09:41 Varicose veins of lower extremity with inflammati on Active Not Available [facility] 3 08:09:41 Shoulder joint pain 525956258 Active Not Available [facility] 3 08:09:42 Anemia 065962625 Active Not Available [facility] 3 08:09:42 Thyroid function tests abnormal 087500493 Active Not Available [facility] 3 08:09:42 Bronchitis 63497177 Active Not Available [facility] 3 08:09:42 Closed fracture of clavicle 13712997 Active Not Available [facility] 3 08:09:42 Hypothyroi dism 94826062 Active Not Available [facility] 3 08:09:42 Obesity 718800184 Active Not Available [facility] 3 08:09:42 Cough 82883144 Active Not Available [facility] 3 08:09:42 Diarrhea 58215962 Active Not Available [facility] 3 08:09:42 Dyspareuni a 63523991 Active Not Available [facility] 3 08:09:42 Neck pain 78119813 Active Not Available [facility] 3 08:09:43 Pain in limb 24702922 Active Not Available [facility] 3 08:09:43 Depressive disorder 62907547 Active 2022 Bella Villasenor MD [address], [facility] [address], [place], [address] , [facility] [employer] [facility] 3 12:22:01 Chronic idiopathic constipati on 42678579 Active 2022 Bella Villasenor MD [address], [facility] [address], [place], [address] , [facility] [employer] [facility] 3 09:45:40 Left side sciatica 3563594335820 04 Active 2022 Bella Villasenor MD [address] [address], [place], [address] , [facility] [employer] [facility] 3 09:47:50 Degenerati on of lumbar interverte bral disc 69667910 Active 2022 Bella Villasenor MD [address], [facility] [address], [place], [address] , [facility] [employer] [facility] 3 09:49:44 Problem Notes None recorded. Procedures Surgical History Date Name Laterality Status Provider Name and Address Organization Details Recorded Time 01/14/20 21 laparoscopic sleeve gastrectomy completed Not Available [facility] 07/03/2022 08:05:25 05/05/19 07 abdominoplasty completed Not Available [facility] 07/03/2022 08:05:25 procedure on upper arm completed Not Available [facility] 07/03/2022 08:05:25 Dilation and curettage completed Not Available [facility] 07/03/2022 08:05:25 Tubal Ligation completed Not Available [facility] 07/03/2022 08:05:25 Hysterectomy, Partial completed Not Available [facility] 07/03/2022 08:05:25 Imaging Results None recorded. Procedure Notes None recorded. Medical Equipment None Reported. Medications Name Sig Start Date Stop Date Status Note LastModified by Organization Details LastModified Time cyclobenza hunter 10 mg tablet TAKE 1 TABLET BY MOUTH THREE TIMES DAILY NEEDED FOR MUSCLE SPASM active Not Available Not Available No t Available metformin 500 mg tablet Take 1 tablet every day by oral route as directed for 30 days. 09/02 completed Not Available Not Available Not Available estradiol 0.075 mg/24 hr semiweekly transderma l patch APPLY 1 PATCH TOPICALL Y TO THE SKIN 2 TIMES A WEEK active Not Available Not Available No t Available azithromyc in 250 mg tablet 2 tabs po qd x 1 day then 1 tab po qd x 4 days active Not Available Not Available No t Available hydrocodon e 5 mg-acetami nophen 325 mg tablet TK 1 T PO Q 6 H PRN P active Not Available Not Available No t Available ondansetro n HCl 4 mg tablet 04/30 completed Not Available Not Available Not Available prednisone 20 mg tablet Take 2 tablets every day by oral route for 5 days. active Not Available Not Available No t Available Doc-Q-Lace 100 mg capsule TK 1 C PO BID 12/05 completed Not Available Not Available Not Available topiramate 25 mg tablet TAKE ONE TABLET BY MOUTH ONCE DAILY 04/18 completed Not Available Not Available Not Available phentermin e 37.5 mg tablet TAKE 1 TABLET BY MOUTH ONCE DAILY 08/24 completed Not Available Not Available Not Available estradiol 0.05 mg/24 hr semiweekly transderma l patch APPLY 1 PATCH TOPICALL Y TWICE A WEEK 2023 active Not Available Not Available Not Avai lable tramadol 50 mg tablet TAKE 1 TABLET BY MOUTH EVERY 4 TO 6 HOURS NEEDED 08/02 completed Not Available Not Available Not Available triamcinol one acetonide 0.1 % topical cream APPLY CREAM EXTERNAL LY TO AFFECTED AREA TWICE DAILY NEEDED 08/02 completed Not Available Not Available Not Available meloxicam 7.5 mg tablet TK 1 T PO QD WF 12/05 completed Not Available Not Available Not Available oxycodone- acetaminop hen 5 mg-325 mg tablet TAKE 1 TABLET BY MOUTH EVERY 6 HOURS NEEDED FOR SEVERE PAIN active Not Available Not Available No t Available levothyrox ine 50 mcg tablet Take 1 tablet(s ) every day by oral route. 10/24 completed Not Available Not Available Not Available hydrocodon e 7.5 mg-acetami nophen 325 mg tablet TK 1 T PO Q 4 H PRN P 12/05 completed Not Available Not Available Not Available cephalexin 500 mg capsule 04/30 completed Not Available Not Available Not Available oseltamivi r 75 mg capsule TK 1 C PO BID 01/19 completed Not Available Not Available Not Available ferrous sulfate 325 mg (65 mg iron) tablet TAKE 1 Q TID 06/28 completed takes while on menses Not Available Not Available Not Available triamcinol one acetonide 0.1 % topical ointment Apply 1 applicat ion twice a day by topical route as needed for 7 days. active Not Available Not Available No t Available hydrocodon e 5 mg-acetami nophen 500 mg tablet 06/28 completed Not Available Not Available Not Available furosemide 20 mg tablet TAKE 1 TABLET BY MOUTH IN THE MORNING NEEDED FOR EDEMA 08/02 completed Not Available Not Available Not Available polyethyle ne glycol 3350 17 gram/dose oral powder 1 capful bid in liquid po prn 11/22 completed Not Available Not Available Not Available methylpred nisolone 4 mg tablets in a dose pack FOLLOW PACKAGE DIRECTIO NS 04/30 completed Not Available Not Available Not Available Vitamin D2 1,250 mcg (50,000 unit) capsule Take 1 capsule every week by oral route. 01/28 completed Not Available Not Available Not Available fluticason e propionate 50 mcg/actuat ion nasal spray,susp ension 2 sprays IEN daily active Not Available Not Available No t Available phentermin e 37.5 mg capsule Take 1 capsule every day by oral route. 08/26 completed Not Available Not Available Not Available Ventolin HFA 90 mcg/actuat ion aerosol inhaler INHALE 2 PUFFS PO Q 4-6 HOURS PRF WHEEZING OR SOB 01/19 completed Not Available Not Available Not Available bupropion HCl XL 150 mg 24 hr tablet, extended release TAKE 1 TABLET BY MOUTH ONCE DAILY active Not Available Not Available No t Available multivitam in 12/05 completed Not Available Not Available Not Available Symbicort 80 mcg-4.5 mcg/actuat ion HFA aerosol inhaler Inhale 1 puff twice a day by inhalati on route for 30 days. active Not Available Not Available No t Available B12 TAKE 1 Q DAY 12/05 completed Not Available Not Available Not Available [employer]PERINTENDENT Thyroid 30 mg tablet TAKE 1 TABLET BY MOUTH DAILY ON AN EMPTY STOMACH active Not Available Not Available No t Available Linzess 145 mcg capsule TAKE 1 CAPSULE BY MOUTH ONCE DAILY active Not Available Not Available No t Available [employer]PER[employer]ENT Thyroid 15 mg tablet Take 1 tablet by mouth once daily 2023 active Not Available Not Available Not Avai lable Linzess 72 mcg capsule TAKE 1 CAPSULE BY MOUTH ONCE DAILY 08/02 completed Not Available Not Available Not Available ID NOW COVID-19 Test Kit TEST DIRECTED TODAY 05/14 completed Not Available Not Available Not Available Vitals Date Recorded Body mass index (BMI) Body height Oxygen saturation Oxygen saturation in Arterial blood by Pulse oximetry Heart rate Body temperature Body weight Systolic blood pressure Diastolic blood pressure Provider Name and Address Organization Details Last Updated DateTime 3 26.5 kg/m2 154.94 cm 99 % 99 % 55 /min 96.2 [degF] 58853.9 3 g 114 mm[Hg] 62 mm[Hg] Not Available [facility] 3 08:07:48 Date Recorded Body mass index (BMI) Body height Oxygen saturation Oxygen saturation in Arterial blood by Pulse oximetry Heart rate Body temperature Body weight Systolic blood pressure Diastolic blood pressure Provider Name and Address Organization Details Last Updated DateTime 2 27.2 kg/m2 154.94 cm 99 % 99 % 71 /min 97.6 [degF] 75628.3 g 120 mm[Hg] 74 mm[Hg] Not Available [facility] 3 08:07:48 Date Recorded Body mass index (BMI) Body height Oxygen saturation Oxygen saturation in Arterial blood by Pulse oximetry Heart rate Body temperature Body weight Systolic blood pressure Diastolic blood pressure Provider Name and Address Organization Details Last Updated DateTime 2 27 kg/m2 154.94 cm 98 % 98 % 76 /min 98.1 [degF] 73376.7 1 g 120 mm[Hg] 78 mm[Hg] Not Available [facility] 3 08:07:48 Date Recorded Body height Body mass index (BMI) Body weight Body temperature Heart rate Oxygen saturation Oxygen saturation in Arterial blood by Pulse oximetry Systolic blood pressure Diastolic blood pressure Provider Name and Address Organization Details Last Updated DateTime 3 154.94 cm 27.8 kg/m2 51259.0 8 g 97.6 [degF] 61 /min 99 % 99 % 130 mm[Hg] 76 mm[Hg] Tracy Munroe RN [place] - [facility] 3 10:37:31 Date Recorded Body height Body mass index (BMI) Body weight Body temperature Heart rate Oxygen saturation Oxygen saturation in Arterial blood by Pulse oximetry Systolic blood pressure Diastolic blood pressure Provider Name and Address Organization Details Last Updated DateTime 3 154.94 cm 26.8 kg/m2 29054.1 2 g 97.2 [degF] 83 /min 98 % 98 % 98 mm[Hg] 62 mm[Hg] Nora pendleton, LAN[place] [facility] 3 09:36:53 Social History Question Answer Notes LastModified by [employer] Details LastModified Time Tobacco Smoking Status Current Every Day Smoker Not Available [employer] 07/03/2022 08:05:18 Do You Have An Advance Directive? No [id number] Information not available 07/03/2022 What Is Your Level Of Caffeine Consumption? Moderate [id number] Information not available 07/03/2022 How Much Tobacco Do You Chew? None [id number] Information not available 07/03/2022 In The 14 Days Before Symptom Onset, Have You Had Close Contact With A Laboratory-confirm ed COVID-19 While That Case Was Ill? No [id number] Information not available 07/03/2022 In The 14 Days Before Symptom Onset, Have You Had Close Contact With A Person Who Is Under Investigation For COVID-19 While That Person Was Ill? No [id number] Information not available 07/03/2022 What Type Of Diet Are You Following? REGULAR [id number] Information not available 07/03/2022 Which Illicit Or Recreational Drugs Have You Used? None [id number] Information not available 07/03/2022 How Much Tobacco Do You Smoke? 1 PPW [id number] Information not available 07/03/2022 Do You Use Sunscreen Routinely? Yes [id number] Information not available 07/03/2022 Sex: Unknown Functional Status Question Answer Note LastModified by [employer] Details LastModified Time What is your level of alcohol consumption? Moderate [id number] Information not available 07/03/2022 Do you or have you ever used smokeless tobacco? 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 Never used electronic cigarettes [id number].[id number] Information not available 07/03/2022 What is your exercise level? None [id number] Information not available 07/03/2022 Mental Status None recorded. Family History Relationship Description Onset Age of this Age Resolved Age Notes LastModified by Organization Details LastModified Time Paternal Uncle Diabetes mellitus [id number] Not available 07/03/2022 08:05:28 Paternal Uncle Disorder of thyroid gland [id number] Not available 07/03/2022 08:05:28 Paternal Aunt Diabetes mellitus [id number] Not available 07/03/2022 08:05:28 Paternal Aunt Disorder of thyroid gland [id number] Not available 07/03/2022 08:05:28 Medical History Condition Response HYPERTHYROIDISM Y CONSTIPATION Y OBESITY Y ANEMIA/BLOOD DISORDER Y BRONCHITIS Y Gynecological HistoryNo gynecological history recorded. Obstetrics History GPAL:G 0 P 0 0 0 0 Immunizations Vaccine Type Date Status Note Provider Nam e and Address Organization Details Recorded Time Influenza, split virus, quadrivalent, PF 3 completed Bella Villasenor MD [address] [place] [address], [id number], [employer] 04/02/2023 09:10:43 Influenza, split virus, trivalent, preservative 2 completed Not Available [facility] 07/03/2022 08:14:43 Influenza, split virus, trivalent, preservative 3 completed Not Available [facility] 07/03/2022 08:14:44 Tdap 3 completed Not Available [facility] 07/03/2022 08:14:44 Influenza, split virus, quadrivalent, PF 3 completed Nora Hutchison [facility] [place] [facility] [employer] [facility] [employer] 04/30/2023 09:37:00 Influenza, split virus, quadrivalent, PF 4 completed Not Available [facility] 07/03/2022 08:14:44 Influenza, split virus, quadrivalent, PF 1 completed Not Available [facility] 07/03/2022 08:14:44 Influenza, split virus, quadrivalent, preservative 6 completed Not Available [facility] 07/03/2022 08:14:44 Past Encounters Encounter ID Performer Location Encounter Start Date Encounter Closed Date Diagnosis/Indication Diagnosis SNOMED-CT Code Diagnosis ICD10 Code Diagnosis Note [id number] Bella Villasenor MD [facility] Primary [place] [address] [facility] [address] [place] [address] 10/23/2020 00:00:00 10/23/2020 16:45:25 [id number] _ATHN_MIGR ATION_1 _ATHENA_M IGRATION_ DEFAULT_1 _1 , 11/22/2020 00:00:00 11/22/2020 16:43:34 [id number] Bella Villasenor MD [facility] Primary [place] [address] [facility] [address] [place] [address] 11/22/2020 00:00:00 11/24/2020 09:01:52 [id number] MARGRET Chavez [facility] Primary [place] [address] [facility] [address] [place] [address] 01/22/2021 00:00:00 01/22/2021 09:46:52 [id number] Bella Villasenor MD [facility] Primary [place] [address] [facility] [address] [place] [address] 05/28/2021 00:00:00 05/28/2021 17:47:01 [id number] Bella Villasenor MD [facility] Primary [place] [address] [facility] [address] [place] [address] 08/16/2021 00:00:00 08/16/2021 16:10:49 [id number] MARGRET Chavez [facility] Primary [place] [address] [facility] [address] [place] [address] 05/15/2022 00:00:00 05/15/2022 13:52:11 [id number] Bella Villasenor MD [facility] Primary Care [place] [address] [facility] [address] [place] [address] 03/18/2023 10:31:37 03/20/2023 17:13:40 Administration of influenza vaccine 65354481 Z23 Pre-surger y evaluation 907306010 Z01.818 Z01.812 if normal, consider wellbutrin [id number] Bella Villasenor MD [facility] Primary Care [place] [address] [facility] [address] [place] [address] 04/30/2023 09:28:13 04/30/2023 09:55:03 Chronic idiopathic constipation 67759846 K59.04 has failed miralax, laxatives, stool softenersh as done very well on linzess 145 mcg dailyf/u in 6 weeks or sooner if needed Degenerati on of lumbar intervertebral disc 63678435 M51.36 has failed nsaids, chiropract ic care, home exercisesy mptoms affect work and quality of lifemri lumbar spine ordered Screening mammography 24 169396 Z12.31 Depressive disorder 3548 9007 F32.A ok to retry bupropion with food 150 mg once dailyRevie wed potential med s/e, d/c and be seen if any si/hif/u in 6 weeks or sooner if needed Health Concerns Section Related Observation LastModified by Organization Detai ls LastModified Time None Recorded Concern Status LastModified by Organization Details LastModified Time None Recorded Advance Directives Directive N: Payers Insurance Date Sequence Insurance Name Policy Number Policy Meyer Covered Member ID Meyer Member ID Guarantor Name 06/09/2023 2 [facility] [id number] Shanika Barton Flores [id number] Shanika Flores 06/09/2023 1 [place] [id number] Shanika Flores [id number] Shanika Flores Notes Date Note Type Note Provider Name and Address Organization Details Recorded Time 3 text/html c/o feeling exhausted for a few months, not sure if she just totally stressed out, she feels nerve twitchingshe feels down/sad, irritable, anxiousno significant issues with concentrationappetite is okno desire to do anything, poor interests, doesn't want to go anywhere+psychomotor retardationwonders if her hormones are normal, she has vaginal dryness and has poor libidodaughter in 2020, she has custody of her 2 grandchildren 6 and 7 has had plastic surgery in the past, needs fat transfer/lipo to fix, needs medical clearance Bella Villasenor MD [address] [place] [address], [facility] [address], [place], [address], [facility] [employer] [facility] 04/02/2023 09:11:20 3 text/html c/o feeling exhausted for a few months, not sure if she just totally stressed out, she feels nerve twitchingshe feels down/sad, irritable, anxiousno significant issues with concentrationappetite is okno desire to do anything, poor interests, doesn't want to go anywhere+psychomotor retardationwonders if her hormones are normal, she has vaginal dryness and has poor libidodaughter in 2020, she has custody of her 2 grandchildren 6 and 7 has had plastic surgery in the past, needs fat transfer/lipo to fix, needs medical clearance update 04/30/23: She took bupropion one day but it made her tearful so she did not take another dose prior to her surgery. Her surgery went well, she is completing her abx and is off prescription pain medications. She has issues with chronic constipation that has been worse since surgery. She has tried stool softeners, laxatives, colon cleanse, miralax but they have not helped. Linzess samples have really helped in the past and she wants to restart this. she has long h/o sciatic nerve pain, radiating to the left side. The pain affects her ability to sit/stand/work. She has taken otc tylenol and ibuprofen. She has been to see chiropractor regularly without improvement. Does home exercise without improvement. Bella Villasenor MD [address] [facility], [place], [address], [facility] [employer] [facility] 04/30/2023 09:54:17 OBGyn Episode No OBEpisode recorded.
--- OUTSIDE RECORDS SUMMARY | 2024-10-16 11:01 | XMS_ITS ---
Author Organization [facility] [employer] [facility] Address [address] [place] [address] Care Team Providers Care Center Machine Operator Name Role Phone Elenita Sargent Primary Care Provider [phone] REASON FOR VISIT PRTL: Insurance Encounters Encounter Location Date Provider Diagnosis [facility] [address] [place] [address] 03/16/2024 Elenita Sargent PLAN OF TREATMENT Next Appt Details Provider Name:Elenita Sargent , 11/16/2024 08:30:00 AM, [address] [place], [address], Progress Notes * Bobby FLORESIgnaciaB:1975 (48 yo F)Acc No.[id number]:03/16/2024 Patient: Shanika FLORES :1975 Age:48 Y Sex:Female Address:[address] [place] [address] Subjective: * Chief Complaints: * PRTL: Insurance * Medical History: * Surgical History: * Hospitalization/Major Diagno stic Procedure: * Medications: Objective: Assessment: Plan: * Treatment: * Procedure Codes: * true * Date:
--- OUTSIDE RECORDS SUMMARY | 2024-10-16 11:01 | XMS_ITS | Clinical Summary ---
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 Gender Identity Not on file Sexual Orientation Not on file Plan of Treatment Health Maintenance Due Date Last Done Comments Hepatitis C Virus (HCV) Screening 1975 TdaP Immunization 1975 Hepatitis B Immunization (1 of 3 - 19+ 3-dose series) 1993 Pap Smear 1995 Cervical Cancer Screening (CCS) 2004 HPV/Cotest 2004 Discussion re Starting/Frequency of Mammograms 2014 Colonoscopy 2019 Colorectal Cancer Screening 2019 Influenza Immunization (#1) 01/04/202405/05, 02/20/2016, 03/04/2014, Additional history exists SARS-COV-2 Immunization ( season) 2024 01/01/2021, 12/04/2020 Cologuard 2024 Immunochemical Fecal Occult Blood 2024 Mammogram 2024 Pneumococcal Immunization (50+ years) (1 of 1 - PCV) 2024 Zoster Immunization (1 of 2) 2024 Respiratory Syncytial Virus (RSV) Immunization (Adult) (1 - 1-dose 75+ series) 2049 Meningococcal Immunization (ACWY) Aged Out No longer eligible based on patient's age to complete this topic Pneumococcal Immunization Combined Aged Out No longer eligible based on patient's age to complete this topic Rotavirus Immunization Aged Out No lo nger eligible based on patient's age to complete this topic
--- OUTSIDE RECORDS SUMMARY | 2024-10-16 11:01 | XMS_ITS | Continuity of Care Document ---
Author Organization [employer] Address [address] [place] [address] [address] [place] [address] Phone Care Team Providers Care Cloth Shader Name Role Phone Go Parra Unavailable Unavailable Procedures Procedure Date Progress Note Therapeutic Activities Therapeutic Exercise Neuromuscular Re-Ed Manual Therapy Therapeutic Activities Neuromuscular Re-Ed Therapeutic Exercise Therapeutic Activities Neuromuscular Re-Ed Therapeutic Exercise Dry Needling 1-2 muscles Therapeutic Activities Therapeutic Exercise Neuromuscular Re-Ed Therapeutic Activities Neuromuscular Re-Ed Therapeutic Exercise Manual Therapy Therapeutic Activities Neuromuscular Re-Ed Therapeutic Exercise Therapeutic Activities Neuromuscular Re-Ed Therapeutic Exercise Therapeutic Activities Neuromuscular Re-Ed Therapeutic Exercise Therapeutic Activities Neuromuscular Re-Ed Therapeutic Exercise Manual Therapy PT Evaluation Moderate Complexity Neuromuscular Re-Ed Therapeutic Exercise Manual Therapy Advance Directives Directive Yes / No Effective Date File Name No Information Encounters Encounter Description Practice Location Reason(s) For Visit Diagnoses Date Provider Providers Copied on Encounter [address], [id number], tel:[phone] [place] No Information 4 Muehl Go. [address] [place] [address], [facility] [address] [place], [facility], . tel: [phone] [address], [id number], tel:[phone] [place] No Information 4 Muehl Go. [address] [place] [address], [facility] [address] [place], [facility], . tel: [phone] Referring Provider: Elenita Sargent, [address] [place] [address], [address]. tel:[phone], [id number], tel:[phone] [place] No Information 4 Muehl Go. [address] [place] [address], [facility] [address], [place], [facility], . tel: [phone] Referring Provider: Elenita Sargent, [address] [place] [address], [address]. tel:[phone], [id number], tel:[phone] [place] No Information 4 Muehl Go. [address] [place] [address], [facility] [address], [place], [place], [facility], . tel: [phone] Referring Provider: Elenita Sargent, [address] [facility], [place], [address]. tel:[phone] [place] [address], [place], [place], [id number], tel:[phone] [place] No Information [address] [facility], [address], [facility], . tel: [phone] Referring Provider: Elenita Sargent, [address] [facility], [place], [address]. tel:[phone] [facility] [address], [id number], tel:[phone] [place] No Information [address] [facility], [address], [facility], . tel: [phone] Referring Provider: Elenita Sargent, [address], [address]. tel:[phone] [facility], [id number], tel:[phone] [place] No Information [address] [address] [facility], [address], [facility], . tel: [phone] Referring Provider: Elenita Sargent, [address], [address]. tel:[phone] [facility] [address], [id number], [place] tel:[phone] [place] No Information 4 [facility]. . Referring Provider: Elenita Sargent, [address] [place] [address], [address]. tel:[phone] [facility] [address] [facility] [address] [employer], [id number], tel:[phone] [place] No Information 4 Prince Moreno. . Referring Provider: Elenita Sargent, [address], [place], [address]. tel:[phone], [id number], tel:[phone] [place] No Information [address] [address] [facility], [address], [facility], . tel:[phone] Referring Provider: Elenita Sargent, [address], [place], [address]. tel:[phone], [id number], tel:[phone] [place] No Information [address] [address] [facility], [address], [address], . tel:[phone] Referring Provider: Elenita Sargent, [address], [place], [address]. tel:[phone] Family History Family Member Type Diagnosis Age At Onset No Information Payers Payer name Insurance type Covered constitution party ID Authoriza ticachorro(s) [facility] [id number] [facility] [id number] Social History Type Description Quantity Date Captured Comments Sex Female Smoking Status No Information Chief Complaint And Reason For Visit No Information Reason For Referral Reason For Referral No Information History Of Present Illness Encounter Date Complaint History Of Prese nt Illness No Information Functional Status Date Functional Assessmen t No Information Instructions Date Instruction Additional Infor mation No Information Assessments Type Assessment Date No Information Patient Care Teams Name Effective Dates (start - stop) Status Members No Information
--- OUTSIDE RECORDS SUMMARY | 2024-10-16 11:01 | XMS_ITS ---
Author Organization BILLING FACILITY [facility] Address [address] [place] [address] Care Team Providers Care Architectural Inspector Name Role Phone Elenita Sargent Primary Care Provider REASON FOR VISIT F/U med efficacy, thyroid MEDICATIONS Medication SIG (Take, Route, Frequency, Duration) Notes Start Date End Date Status Magdalena 0.075 MG/24HR 1 patch to skin Transdermal Two times a Week for 30 days [facility] Active MANTEL CRAFTSMAN Thyroid 30 MG 1 tablet on an empty stomach Orally Once a day for 90 days [facility] 08/19/2023 Active buPROPion HCl ER (XL) 150 MG 1 tablet in the morning Orally Once a day for 90 days 01/20/2024 Active Encounters Encounter Location Date Provider Diagnosis [address] [address] 04/20/2024 Elenita Sargent PLAN OF TREATMENT Next Appt Details Provider Name:Elenita Sargent , 11/16/2024 08:30:00 AM, [address] [place], [address], Progress Notes * Bobby CHAOaDOB:1975 (49 yo F)Acc No.[id number]:04/20/2024 Patient: Shanika CHAO Provider: Elenita Sargent APRN :1975 Age:48 Y Sex:Female Date:04/20/2024 Address:[address] [place], [id number] Subjective: * Chief Complaints: * 1. F/U med efficacy, thyroid. * Medical History: * Medications: Taking Magdalena 0.075 MG/24HR Patch Twice Weekly 1 patch to skin Transdermal Two times a Week , Taking MANTEL CRAFTSMAN Thyroid 30 MG Tablet 1 tablet on an empty stomach Orally Once a day , Taking buPROPion HCl ER (XL) 150 MG Tablet Extended Release 24 Hour 1 tablet in the morning Orally Once a day Objective: Assessment: Plan: * Treatment: * Billing Information: * Visit Code: * Procedure Codes: * Sign off status: Completed Addendum: * true * Provider: Elenita Sargent APRN Date: 04/20/2024
== END 2024-10-16 10:56 | disposition home or self-care (01) ==
LOC: ANHIMG 10:58
PROVIDERS: PCP Nurse Practitioner Family; Visit Provider Nurse Practitioner Family
DX: Z12.31 Encounter for screening mammogram for malignant neoplasm of breast (principal)
CPT/HCPCS: 77063; 77067